=== PATIENT | female | born 1950 | race Hispanic/Latino ===

== ENCOUNTER 2024-06-09 00:16 | Inpatient (IN) | payer SELFPAY ==
[~2024-06-09] VITALS: Ht 152.4 cm; Wt 38.7 kg
[2024-06-09 01:26] LABS: BASOPHILS # (AUTO) 0.03 K/uL (0.00-0.20); BASOPHILS % (AUTO) 0.5 % (0.0-5.0); EOSINOPHILS # (AUTO) 0.15 K/uL (0.00-0.70); EOSINOPHILS % (AUTO) 2.3 % (0.0-8.0); HEMATOCRIT 29.7 % (36-48); IMMATURE GRANULOCYTE ABSOLUTE 0.02 K/uL (0-1); LYMPHOCYTES # (AUTO) 1.1 K/uL (1.0-4.8); LYMPHOCYTES % (AUTO) 16.8 % (21.0-51.0); MEAN CORPUSCULAR HEMOGLOBIN 30.8 pg (27.0-33.0); MEAN CORPUSCULAR HGB CONC 33.3 g/dL (32.0-36.0); MEAN CORPUSCULAR VOLUME 92.5 fL (79-99); MONOCYTES # (AUTO) 0.5 K/uL (0.1-1.0); MONOCYTES % (AUTO) 7.9 % (3.0-13.0); NEUTROPHILS # (AUTO) 4.7 K/uL (1.8-7.7); NEUTROPHILS % (AUTO) 72.2 % (40.0-77.0); PLATELET COUNT (AUTO) 376 K/uL (130-400); RED BLOOD CELL COUNT(AUTO) 3.21 MIL/uL (4.00-5.50); RED CELL DISTRIBUTION WIDTH 14.6 % (11.0-15.5); WHITE BLOOD COUNT (AUTO) 6.5 K/uL (4.8-10.8)
[2024-06-09 01:34] LABS: CREATININE 0.4 mg/dL (0.5-1.0); POTASSIUM 3.9 mmol/L (3.5-5.1)
[2024-06-09 01:37] LABS: INR 1.08 (0.85-1.15); PROTHROMBIN TIME 11.4 SEC (9.6-11.6)
[2024-06-09 01:38] LABS: PARTIAL THROMBOPLASTIN TIME 28.1 SEC (26.3-35.5)
--- NOTE | 2024-06-09 02:10 | ERN ---
General Chief Complaint: Urinary Catheter Problems Stated Complaint: DARK URINE Time Seen by MD: 00:25 Time Seen by Midlevel: 00:25 Source: patient History of Present Illness Allergies: Coded Allergies: No Known Drug Allergies (Unverified Allergy, Unknown, 06/09/24) Past Medical History Past Medical History: High Cholesterol, Hypertension Medical History Other: PARKINSON'S Past Surgical History: None ROS Dictation CONSTITUTIONAL: Negative except for HPI HEAD/FACE: Negative except for HPI EENT: Negative except for HPI RESPIRATORY: Negative except for HPI GASTROINTESTINAL/ABDOMINAL: Negative except for HPI GENITOURINARY: Negative except for HPI MUSCULOSKELETAL: Negative except for HPI INTEGUMENTARY: Negative except for HPI NEUROLOGICAL/PSYCH: Negative except for HPI HEMATOLOGIC/LYMPHATIC: Negative except for HPI All Systems Negative, Except as noted above. 13 point review of systems assessed and all negative except for above. Physical Exam Physical Exam Dictation Vital Signs reviewed General Appearance: Alert, oriented x 3, no acute distress, resting tremor to bilateral upper extremities consistent with her history of Parkinson's, frail Head and Face: non-traumatic. Eyes: PERRL, pink conjunctivas, eyelid no trauma, anterior chamber with arcus senilis. Ears: Pinnas intact and no signs of trauma or erythema ear canals clear and no discharge TM no erythema Nose: No discharge, no bleeding. Oropharynx: Mouth normal, tongue pink, pharynx clear,no erythema, tonsils no exudates, no abscesses noted, dry mucous membranes Neck: Supple, non-tender, no thyromegaly, no masses, no JVD, no bruits Breast:Deferred Chest:No tenderness, no crepitus, no paradoxical movement, no retractions Lungs:Clear, well-ventilated, symmetric, no rales, no wheezing, no rhonchi, no stridor, good breath sounds bilaterally Heart: Regular rate, regular rhythm, no murmur, no gallops Vascular: no peripheral edema, Abdomen: Soft, positive bowel sounds, nondistended, no guarding, Suprapubic abdominal tenderness, no rebound, no masses no hepatomegaly, no splen omegaly, no Hayden's sign, no hernias. Rectal: Deferred Genital: Sal catheter in place with dark brown/red urine noted in the Sal bag, there is sediment in the Sal catheter Neurological: Normal speech, motor function intact, sensory function intact Musculoskeletal: Neck nontender, full range of motion, back nontender, full range of motion, Extremities: nontender, full range of motion Skin: Color pink, dry, no turgor, no rash, no lacerations, no abrasions, no contusions. Lymphatic: Deferred Results Laboratory and Microbiology Lab and Micro Result Laboratory Tests Test 06/09/24 01:19 06/09/24 02:24 White Blood Count 6.5 K/uL (4.8-10.8) Red Blood Count 3.21 MIL/uL (4.00-5.50) L Hemoglobin 9.9 g/dL (12.0-16.0) L Hematocrit 29.7 % (36-48) L Mean Corpuscular Volume 92.5 fL (79-99) Mean Corpuscular Hemoglobin 30.8 pg (27.0-33.0) Mean Corpuscular Hemoglobin Concent 33.3 g/dL (32.0-36.0) Red Cell Distribution Width 14.6 % (11.0-15.5) Platelet Count 376 K/uL (130-400) Mean Platelet Volume 8.8 fL (7.5-10.5) Immature Granulocyte % (Auto) 0.3 % (0-1) Neutrophils (%) (Auto) 72.2 % (40.0-77.0) Lymphocytes (%) (Auto) 16.8 % (21.0-51.0) L Monocytes (%) (Auto) 7.9 % (3.0-13.0) Eosinophils (%) (Auto) 2.3 % (0.0-8.0) Basophils (%) (Auto) 0.5 % (0.0-5.0) Neutrophils # (Auto) 4.7 K/uL (1.8-7.7) Lymphocytes # (Auto) 1.1 K/uL (1.0-4.8) Monocytes # (Auto) 0.5 K/uL (0.1-1.0) Eosinophils # (Auto) 0.15 K/uL (0.00-0.70) Basophils # (Auto) 0.03 K/uL (0.00-0.20) Absolute Immature Granulocyte (auto 0.02 K/uL (0-1) Nucleated Red Blood Cells 0.0 % (0.0-0.19) Prothrombin Time 11.4 SEC (9.6-11.6) Prothromb Time International Ratio 1.08 (0.85-1.15) Activated Partial Thromboplast Time 28.1 SEC (26.3-35.5) Sodium Level 132 mmol/L (136-145) L Potassium Level 3.9 mmol/L (3.5-5.1) Chloride Level 97 mmol/L (101-111) L Carbon Dioxide Level 30 mmol/L (21-32) Blood Urea Nitrogen 8 mg/dL (7-18) Creatinine 0.4 mg/dL (0.5-1.0) L Glomerular Filtration Rate Calc 106 mL/min (>90) Random Glucose 85 mg/dL (70-105) Total Calcium 8.7 mg/dL (8.5-10.1) Urine Color LIGHT-YELLOW (YELLOW) Urine Appearance CLOUDY (CLEAR) H Urine pH 7.5 (5.0-8.0) Urine Specific [place] 1.005 (1.001-1.031) Urine Protein NEGATIVE mg/dL (NEGATIVE) Urine Glucose (UA) NEGATIVE mg/dL (NEGATIVE) Urine Ketones NEGATIVE mg/dL (NEGATIVE) Urine Occult Blood NEGATIVE (NEGATIVE) Urine Nitrate NEGATIVE (NEGATIVE) Urine Bilirubin NEGATIVE mg/dL (NEGATIVE) Urine Urobilinogen 0.2 mg/dL (0.2-1.0) Urine Leukocyte Esterase 500 Soo/uL (NEGATIVE) H Urine RBC 2-5 /HPF (0-1) H Urine WBC 51-100 /HPF (0-1) H Urine WBC Clumps (Auto) FEW /HPF (0-1) Urine Squamous Epithelial Cells RARE /HPF (0-2) Urine Bacteria MOD /HPF (None Seen) Urine Yeast RARE /HPF (None Seen) Labs Reviewed?: Yes MDM MDM: The patient is a 71-year-old female with a past medical history of Par kinson's, hypertension, and hyperlipidemia presenting to the emergency department for evaluation of suprapubic abdominal pain. She also reports that for the last four days she has been having hematuria in her Sal. Today she states the Sal had decreased output and believes it may have been clogged. She reports subjective fevers for the last couple of days. The patient does not ambulate at baseline given her extensive history of Parkinson's. She lives with her who is also an elderly patient. She has not been able to follow up with her primary care doctor anymore since her is no longer able to transfer her into the car. On physical examination the patient has a resting tremor to bilateral upper extremities consistent with her history of the Parkinson's. She appears frail and weak. She was a Sal catheter in place with hematuria in the Sal bag. There was obvious sediment in the Sal catheter. She was suprapubic abdominal tenderness. Initial vital signs are stable. Patient was afebrile. CBC shows no leukocytosis with a normal white blood cell count of 6.5. There is anemia with a hemoglobin of 9.9. We have no hemoglobin to compare this to. Her platelets are normal at 376. Coag studies are unremarkable. Chemistries reveal slight hyponatremia with a sodium of 132, slight hypochloremia with a chloride of 97. Potassium is normal at 3.9. BUN and creatinine are unremarkable. CT scan of the abdomen/pelvis was obtained to rule out any post bladder outlet obstruction. Differential diagnosis: Complicated urinary tract infection, post bladder outlet obstruction, deconditioning, failure to thrive Rationale: Tests considered and ordered secondary to shared decision making include: Previous outside records reviewed: Old ER visits. Risk of complication and/or morbidity or mortality of patient management: None Medications-Per medication reconciliation Need for hospitalization: Patient does meet criteria for hospitalization. Need for emergency major/minor surgery: No There are no social concerns with this patient. Prescription drug management Prescriptions will include symptomatic care Patient's prior external medical records from other ER visits were reviewed by me as indicated. Prior testing and results from previous visits were reviewed. Prior tests were taken into account with medical decision making and resource utilization, independent historian/historians were used to obtain complete medical history. I independently interpreted the test that were performed, results were reviewed by me and considered findings on radiology if ordered. Medical management and examination interpretation discussions were had by me with other qualified healthcare professionals as indicated for the patient's care. I discussed the patient's condition with the hospitalist and they have agreed to admit her to the hospital. She does have esterase activity in her urine. ED Course Orders Procedure Category Date Status Time Cbc With Differential LAB 06/09/24 Complete 00:59 Basic Metabolic Panel LAB 06/09/24 Complete 00:59 Pt And Ptt LAB 06/09/24 Complete 00:59 Urinalysis Profile LAB 06/09/24 Complete 00:59 Ct Abdomen/Pelvis W/O CT 06/09/24 Taken Contrast 00:59 Nurse Driven Sal JOAQUÍN 06/09/24 In Process Removal Pro 02:07 Culture Urine LILLY 06/09/24 In Process 02:33 Vital Signs Date Time Temp Pulse Resp B/P (MAP) Pulse Ox O2 Delivery O2 Flow Rate FiO2 06/09/24 02:39 58 17 93/44 99 Room Air* 0 21 06/09/24 00:25 97.0 91 16 139/66 99 Room Air 0 DX & DISP Disposition: Inpatient Departure Impression: Primary Impression: UTI (urinary tract infection) Condition: Stable Referrals: SELF,REFERRAL (PCP) I have reviewed the case, and I agree with, Diagnosis and Plan RO SERRA Jun 09, 2024 02:10 SUNNY MARR MD Jun 09, 2024 04:42
[2024-06-09 02:32] LABS: ADD UA MICROSCOPIC YES; APPEARANCE,URINE CLOUDY (CLEAR); BILIRUBIN,URINE NEGATIVE (NEGATIVE); COLOR,URINE LIGHT-YELLOW (YELLOW); GLUCOSE, URINE (UA) NEGATIVE (NEGATIVE); KETONES,URINE NEGATIVE (NEGATIVE); LEUKOCYTE ESTERASE ,URINE 500 Leu/uL (NEGATIVE); NITRATE,URINE NEGATIVE (NEGATIVE); OCCULT BLOOD,URINE NEGATIVE (NEGATIVE); PH,URINE 7.5 (5.0-8.0); PROTEIN,URINE NEGATIVE (NEGATIVE); UROBILINOGEN,URINE 0.2 mg/dL (0.2-1.0)
[2024-06-09 02:35] LABS: BACTERIA,URINE MOD /HPF (None Seen); SQUAMOUS EPITHELIAL CELL,UR RARE /HPF (0-2); WBC CLUMP FEW /HPF (0-1); WBC,URINE 51-100 /HPF (0-1); YEAST,URINE BUDDING RARE /HPF (None Seen)
[2024-06-09] MEDS ORDERED: 0.9%NACL 50ML IV SCH (05:00)
[2024-06-09] MEDS ORDERED: DOCU100C33 PO (05:08)
[2024-06-09] MEDS ORDERED: LISI10TA24 PO (05:08)
[2024-06-09] MEDS ORDERED: CARB1TAB35 PO (05:08)
[2024-06-09] MEDS ORDERED: GABA-529 PO (05:08)
[2024-06-09] MEDS ORDERED: FOLI1 PO (05:08)
[2024-06-09] MEDS ORDERED: CYAN-35 PO (05:08)
[2024-06-09] MEDS ORDERED: AMLO2.5T4 PO (05:08)
[2024-06-09] MEDS ORDERED: LEVO100T12 PO (05:08)
[2024-06-09] MEDS: ZOSYN 3.375GM +NS 50ML IVPB SCH (05:24)
--- NOTE | 2024-06-09 05:44 | HP ---
[facility] HISTORY AND PHYSICAL Date of Service: Jun 09, 2024 Time of Service: 05:20 Attending/supervising physicians: Dr. Upton and Dr. Pettit HISTORY OF PRESENT ILLNESS: Ms. Dumont is a 71-year-old female with a history of UTIs, chronic Sal, hx of ESBL in the urine, Parkinson's, hypercholesteremia, and hypertension who presented to [facility] ED for evaluation of suprapubic abdominal pain, Sal problem, hematuria, and dark urine onset the last four days. The patient reported discomfort to the urinary meatus, noted large amount of hematuria, then the urine in the bag looked brownish in color. Today the Sal catheter had decreased output, was leaking around, and for which the family believed it was clogged. The patient reported subjective fevers for the last couple of days. The patient does not ambulate at baseline due to her extensive history of Parkinson's. The patient lives with her elderly who takes care of her. The patient is not able to follow up with her PCP given that her 's not able to transfer her in the car anymore. ED change the patient's Sal to a three-way Sal catheter. In case irrigation was needed, no irrigation was done. ED provider request patient be admitted with the diagnosis of UTI. The patient was admitted under the [facility] hospitalist team. I assess the patient at bedside in ED #15. Patient's breathing was even, unlabored, in no distress. Patient's oral mucosa is dry, has bags under her eyes, I appears to be slightly sunken in. Patient has resting tremors to her bilateral upper extremities, R>L. Labs reviewed: Hemoglobin 9.6, platelet 376. Coags unremarkable. Na 132, chloride 97, K 3.9. BUN and creatinine are unremarkable. CT abdomen and pelvis: Sal catheter within normal size urinary bladder, without evidence of any acute intra-abdominal or pelvic process, including no evidence for cystitis. The patient and the were very conversive. They asked multiple questions were addressed by me. I informed them of labs, diagnostics, plan of care. They verbalized understanding and are in agreement with the plan. Plan and assessment are listed below. REVIEW OF SYSTEMS 12-point ROS reviewed with the patient. All pertinent positives mentioned above. Otherwise negative, noncontributory, or non-pertinent. PAST MEDICAL HISTORY: As mentioned above PAST SURGICAL HISTORY: None PAST SOCIAL HISTORY: Denies alcohol, tobacco, illicit drug use FAMILY HISTORY: Noncontributory Coded Allergies: amoxicillin (Unverified Allergy, Unknown, HIVES, 06/09/24) aspirin (Unverified Allergy, Unknown, HIVES, 06/09/24) levofloxacin (Unverified Allergy, Unknown, ITCHING, 06/09/24) PHYSICAL EXAM GENERAL APPEARANCE: The patient is awake, alert, and oriented, in no acute cardiopulmonary distress. NEUROLOGICAL: Cranial nerves II-XII grossly intact. Motor is 5/5 in bilateral upper and lower extremities proximal to distal. No sensory deficits. HEENT: Face is symmetric. Pupils are equal and reactive. Extraocular movements are intact. NECK: Supple. No JVD. No thyromegaly. No submental, submandibular, pre- /postauricular, occipital or supraclavicular lymphadenopathy. CHEST: Normal chest expansion. No Telemetry. LUNGS: Absence of any rales, rhonchi or any wheezing. CARDIOVASCULAR: Regular. S1 and S2 normal. No appreciable rubs, murmurs or gallops. ABDOMEN: Soft, nontender, and nondistended. There is no rebound, voluntary guarding, or rigidity. : Three-way Sal catheter in place. No bleeding noted. No discharge or drainage around the Sal. EXTREMITIES: Non-edematous and not cyanotic. No clubbing. Good capillary refill. SKIN: No skin breakdown. Vital Sign (Last 24 Hours) 06/09/24 06/09/24 00:25 05:19 Temp 97.0 Pulse 83 Resp 17 B/P (MAP) 135/72 Pulse Ox 99 O2 Delivery Room Air* O2 Flow Rate 0 FiO2 21 LABS: Laboratory: Test 06/09/24 02:24 06/09/24 01:19 Range/Units Urine Color LIGHT-YELLOW YELLOW Urine Appearance CLOUDY H CLEAR Urine pH 7.5 5.0-8.0 Urine Specific [place] 1.005 1.001-1.031 Urine Protein NEGATIVE NEGATIVE mg/dL Urine Glucose (UA) NEGATIVE NEGATIVE mg/dL Urine Ketones NEGATIVE NEGATIVE mg/dL Urine Occult Blood NEGATIVE NEGATIVE Urine Nitrate NEGATIVE NEGATIVE Urine Bilirubin NEGATIVE NEGATIVE mg/dL Urine Urobilinogen 0.2 0.2-1.0 mg/dL Urine Leukocyte Esterase 500 H NEGATIVE Soo/uL Urine RBC 2-5 H 0-1 /HPF Urine WBC 51-100 H 0-1 /HPF Urine WBC Clumps (Auto) FEW 0-1 /HPF Urine Squamous Epithelial Cells RARE 0-2 /HPF Urine Bacteria MOD None Seen /HPF Urine Yeast RARE None Seen /HPF White Blood Count 6.5 4.8-10.8 K/uL Red Blood Count 3.21 L 4.00-5.50 MIL/uL Hemoglobin 9.9 L 12.0-16.0 g/dL Hematocrit 29.7 L 36-48 % Mean Corpuscular Volume 92.5 79-99 fL Mean Corpuscular Hemoglobin 30.8 27.0-33.0 pg Mean Corpuscular Hemoglobin Concent 33.3 32.0-36.0 g/dL Red Cell Distribution Width 14.6 11.0-15.5 % Platelet Count 376 130-400 K/uL Mean Platelet Volume 8.8 7.5-10.5 fL Immature Granulocyte % (Auto) 0.3 0-1 % Neutrophils (%) (Auto) 72.2 40.0-77.0 % Lymphocytes (%) (Auto) 16.8 L 21.0-51.0 % Monocytes (%) (Auto) 7.9 3.0-13.0 % Eosinophils (%) (Auto) 2.3 0.0-8.0 % Basophils (%) (Auto) 0.5 0.0-5.0 % Neutrophils # (Auto) 4.7 1.8-7.7 K/uL Lymphocytes # (Auto) 1.1 1.0-4.8 K/uL Monocytes # (Auto) 0.5 0.1-1.0 K/uL Eosinophils # (Auto) 0.15 0.00-0.70 K/uL Basophils # (Auto) 0.03 0.00-0.20 K/uL Absolute Immature Granulocyte (auto 0.02 0-1 K/uL Nucleated Red Blood Cells 0.0 0.0-0.19 % Prothrombin Time 11.4 9.6-11.6 SEC Prothromb Time International Ratio 1.08 0.85-1.15 Activated Partial Thromboplast Time 28.1 26.3-35.5 SEC Sodium Level 132 L 136-145 mmol/L Potassium Level 3.9 3.5-5.1 mmol/L Chloride Level 97 L 101-111 mmol/L Carbon Dioxide Level 30 21-32 mmol/L Blood Urea Nitrogen 8 7-18 mg/dL Creatinine 0.4 L 0.5-1.0 mg/dL Glomerular Filtration Rate Calc 106 >90 mL/min Random Glucose 85 70-105 mg/dL Total Calcium 8.7 8.5-10.1 mg/dL Current Medications Medications (Trade) Dose Ordered Sig/Becca Route PRN Reason Start Time Stop Time Status Last Admin Dose Admin Piperacillin Sod/ Tazobactam Sod (Zosyn 3.375gm+NS 50ml) 3.375 gm Q8H IVPB 06/09/24 05:00 06/19/24 04:59 06/09/24 05:24 3.375 GM Sodium Chloride (NS 50ml) 50 ml AD IV 06/09/24 05:00 06/09/24 05:01 DC DIAGNOSTICS / RADIOLOGY: [ ] ASSESSMENT: Acute complicated cystitis, POA Chronic Sal catheter use Anemia Electrolyte derangement (hyponatremia, hypochloremia) Parkinson's disease Hypertension Hypercholesteremia HX: UTIs & ESBL in the urine PLAN: Admit the patient to medical floor. Start Zosyn 3.375 IV q.8 hours. Antibiotic therapy tailored to urine culture results. Deescalate antibiotics when appropriate. Monitor for fevers and for hematuria. Follow WBCs and urine cultures. Sal catheter change per nursing staff. Resume patient's home medications: Amlodipine, carbidopa levodopa, vitamin B12, docusate, folic acid, gabapentin, levothyroxine, lisinopril. Oxygen as needed to keep SpO2 equal to greater than 92%. P.r.n. medications for: Pain management, fever, hypertension, nausea, vomiting, constipation. Glucometer checks a.c. and HS with insulin regular sliding scale per protocol. Blood pressure checks every 4 hours and as needed. Monitor renal and liver function. Monitor electrolytes and treat accordingly. Administer gentle IV fluid hydration: NS 500 mL. A.m. labs: CBC, BMP, Mag, phos, TSH, A1c. GI and DVT prophylaxis. ADVANCED CARE PLANNING 1. Which of the following were discussed? Hospice Care - No Therapeutic options - Yes Advance Directives - Yes Other discussions - 2. Discussed with who? Patient 3. Voluntary nature of this service was explained to the patient? Yes 4. Amount of time spent - ___ Over 35 minute ____ 5. Reviewed by Physician? (if this service was performed by NPP) Yes ATTESTATION BY PHYSICIAN I have seen and examined the patient. I reviewed the documentation, medical decision making, and treatment plan as noted by the mid-level provider above. I agree with the findings and plan of care. HERMELINDA IZAGUIRRE [facility] Jun 09, 2024 05:44
[2024-06-09] MEDS ORDERED: acetaMINOPHEN 650 MG SUPPOSITORY RC PRN (06:00)
[2024-06-09] MEDS ORDERED: doCUSate SODIUM 100 MG CAP PO PRN (06:00)
[2024-06-09] MEDS ORDERED: acetaMINOPHEN 325 MG TAB PO PRN (06:00)
[2024-06-09] MEDS ORDERED: ondanSETRON 4MG INJ IVP PRN (06:00)
[2024-06-09] MEDS ORDERED: LACTULOSE 20 GM/30 ML UDCUP PO PRN (06:00)
[2024-06-09] MEDS: levoTHYROxine 100 MCG TABLET PO SCH (06:33)
[2024-06-09 07:40] VITALS: BP 113/50; PULSE 52; RESP 20; TEMP 97.8
--- NOTE | 2024-06-09 07:40 | NUR ---
ADMISSION Pt admitted to Med Surg floor arrived by ER. A&Ox4 able to voice needs. C/o bladder pain pain of 2 on a 0-10 scale. Pt with spouse at bedside. Eyes spontaneous and brisk & equal. Bilateral U&LE pulses present & equal. Lungs clear on all lobes. Bowels hyperactive x 4. Abdomen flat soft & nondistended. 16 F taylor 3-way intact & patent. Yellow urine no foul odor noted + sediment Cap refill less than 3 on fingers & toes. Call light education provided & within reach. Bed at lowest level & locked. Pt verbalized no further assistance needed. SR, RN
--- NOTE | 2024-06-09 08:09 | HMCIMG ---
CT ABDOMEN WITHOUT CONTRAST. CT PELVIS WITHOUT CONTRAST. INDICATION: Evaluate for bladder obstruction TECHNIQUE: Routine transaxial imaging using 5 mm slice thickness through the abdomen and pelvis without the administration of IV contrast. Thin slice reconstructions are also provided. Coronal and sagittal reformatted images acquired for interpretation. CT was performed with one or more of the following dose reduction techniques: Automated exposure control, adjustment of the mA and/or kV according to patient size, or use of iterative reconstruction technique. COMPARISON: None FINDINGS: ON NONCONTRAST IMAGING: ABDOMEN: Heart size is normal. Visible lung bases are clear. No abnormal renal calcifications, hydronephrosis, perinephric inflammation, or proximal hydroureter detected. Curvilinear calcification at the upper pole of the right kidney and larger linear calcification at the mid to upper portion of the left kidney appear to be of vascular in origin. The liver is normal in size and smooth in contour without biliary duct dilation. The spleen is normal in size and attenuation. The gallbladder appears normal. The pancreas appears normal without pancreatic duct dilation. The adrenal glands appear normal. No significant abdominal, retrocrural or retroperitoneal adenopathy noted. No evidence for intra-abdominal free air or organized fluid collection. Mild calcific plaque is noted along the abdominal aortic and iliac vessel alberto without aneurysmal dilation. PELVIS: Sal catheter occupies the urinary bladder. No evidence for free air or organized pelvic fluid collection. No significant pelvic adenopathy detected. Moderate rectal fecal impaction. Terminal ileum appears unremarkable. The appendix appears normal. Visible osseous structures are intact. IMPRESSION: Sal catheter within the normal-sized urinary bladder, without evidence for any acute intra-abdominal or pelvic process, including no evidence for cystitis. Additional minor findings and pertinent negatives as reported.
[2024-06-09] MEDS: CARBIDOPA-LEVODOPA 25-100 TAB PO SCH (08:20)
[2024-06-09] MEDS: FOLic ACID 1 MG TABLET PO SCH (08:21)
[2024-06-09] MEDS: GABApentin 100 MG CAPSULE PO SCH (08:21)
[2024-06-09] MEDS: CYANOCOBALAMIN (VITAMIN B-12) 1,000 MCG TABLET PO SCH (08:22)
[2024-06-09] MEDS: doCUSate SODIUM 100 MG CAP PO SCH (08:22)
[2024-06-09] MEDS: LISINOPRIL 10 MG TABLET PO SCH (08:23)
[2024-06-09] MEDS: amLODIPine 2.5 MG TAB PO SCH (09:00)
[2024-06-09 09:54] VITALS: O2SAT 100
[2024-06-09 12:00] VITALS: BP 103/53; PULSE 57; RESP 18; TEMP 97.8
[2024-06-09] MEDS: 0.9% NACL 500ML IV.SOLN 500 ML IV ONE (13:14)
[2024-06-09 16:00] VITALS: BP 120/87; PULSE 63; RESP 18; TEMP 97.5
[2024-06-09] MEDS: CARBIDOPA/LEVODOPA ER 50-200 1 EACH TABLET.ER PO SCH (17:30)
[2024-06-09 19:08] VITALS: O2SAT 98
[2024-06-09 20:00] VITALS: BP 153/92; PULSE 87; RESP 16; TEMP 97.8
--- NOTE | 2024-06-09 23:26 | NUR ---
PATIENT HAS BP 81/41 HR 57. REPORTS FEELING WEEK, BUT NO OTHER DISCOMFORT. RECHECKED BP ON RIGHT ARM 79/42 P 57 AND LEFT ARM 74/41 HR 56 O2 SAT 98% RR 16 TEMP 97.8. CONTACTED ANSWERING SERVICE FOR HOSPITALIST TO JERALD LEA NP. SPOKE WITH HAZEL IZAGUIRRE NP. RECEIVED ORDERS FOR MIDODRINE 10MG X1 DOSE AND 500ML NS BOLUS. NOTIFIED PATIENT OF NEW ORDERS.
[2024-06-09] MEDS: miDODRine HCL 5 MG TABLET PO ONE ×2 (23:54→23:58)
[2024-06-09] MEDS: 0.9%NACL 1000ML 1,000 ML IV SCH (23:59)
[2024-06-10] VITALS (9 sets, daily range): BP systolic 79–152; BP diastolic 42–81; PULSE 55–75; RESP 17–18; TEMP 97.6–98.2; O2SAT 97–99
--- NOTE | 2024-06-10 01:00 | NUR ---
CHECKED PATIENT'S BP 91/44 HR 55 ON RIGHT ARM AND 94/47 HR 56. SAYS SHE FEELS A LITTLE WEAK BUT NO OTHER SYMPTOMS OR DISCOMFORTS.
[2024-06-10 04:31] LABS: HEMATOCRIT 29.5 % (36-48); MEAN CORPUSCULAR HEMOGLOBIN 30.4 pg (27.0-33.0); MEAN CORPUSCULAR HGB CONC 32.9 g/dL (32.0-36.0); MEAN CORPUSCULAR VOLUME 92.5 fL (79-99); RED BLOOD CELL COUNT(AUTO) 3.19 MIL/uL (4.00-5.50); RED CELL DISTRIBUTION WIDTH 14.8 % (11.0-15.5); WHITE BLOOD COUNT (AUTO) 5.1 K/uL (4.8-10.8)
[2024-06-10 04:45] LABS: CREATININE 0.5 mg/dL (0.5-1.0); PHOSPHORUS 3.1 mg/dL (2.5-4.9); POTASSIUM 3.3 mmol/L (3.5-5.1)
[2024-06-10] MEDS ORDERED: MAGNESIUM 2GM PREMIX 50ML 50 ML IV PRN (09:00)
[2024-06-10] MEDS ORDERED: PoTASSium chloRIDE 20MEQ ER 20 MEQ ERTAB PO PRN (09:00)
[2024-06-10] MEDS ORDERED: PoTASSium chloRIDE 20MEQ/100ML 100 ML IV PRN (09:00)
[2024-06-10] MEDS: PoTASSium chl 10% ELIXIR 20MEQ 20 MEQ/15 ML UDCUP PO PRN (11:21)
--- NOTE | 2024-06-10 14:44 | PN ---
[facility] PROGRESS NOTE Date of Service: Jun 10, 2024 Time of Service: 14:31 SUBJECTIVE: Ms. Dumont is a 71-year-old female with a history of UTIs, chronic Sal, hx of ESBL in the urine, Parkinson's, hypercholesteremia, and hypertension who [place] [facility] [facility] [place] evaluation of suprapubic abdominal pain, Sal problem, hematuria, and dark urine onset the last four days. The patient reported discomfort to the urinary meatus, noted large amount of hematuria, then the urine in the bag looked brownish in color. Today the Sal catheter had decreased output, was leaking around, and for which the family believed it was clogged. The patient reported subjective fevers for the last couple of days. The patient does not ambulate at baseline due to her extensive history of Parkinson's. The patient lives with her elderly who takes care of her. The patient is not able to follow up with her PCP given that her 's not able to transfer her in the car anymore. ED change the patient's Sal to a three-way Sal catheter. In case irrigation was needed, no irrigation was done. ED provider request patient be admitted with the diagnosis of UTI. The patient was admitted under the [facility] hospitalist team. I assess the patient at bedside in ED #15. Patient's breathing was even, unlabored, in no distress. Patient's oral mucosa is dry, has bags under her eyes, I appears to be slightly sunken in. Patient has resting tremors to her bilateral upper extremities, R>L. Labs reviewed: Hemoglobin 9.6, platelet 376. Coags unremarkable. Na 132, chloride 97, K 3.9. BUN and creatinine are unremarkable. CT abdomen and pelvis: Sal catheter within normal size urinary bladder, without evidence of any acute intra-abdominal or pelvic process, including no evidence for cystitis. 06/10/24 the patient is seen and examined this morning, her being at the bedside. Her nurse helped with the translation. On Examination Patient has significant resting tremor. As per the nurse, patient is having suprapubic pain which happen go away after she urinates. She also has a tenderness in lower ab dominal pain. Her urine bag connected clear straw-colored urine without any blood. Urine analysis is consistent with UTI. Urine cultures positive for >[id number] CFU and sensitivity and susceptibility to follow. Continue with Zosyn Q 8 IVPB. REVIEW OF SYSTEMS CONSTITUTIONAL: Denies fevers, chills, or night sweats. No unintentional weight loss reported. NEUROLOGICAL: Denies headache, amaurosis fugax, motor weakness, sensory deficit, vertigo/spinning sensation, gait abnormalities, or tremors. ENT: No hearing loss, otalgia, otorrhea, rhinitis, rhinorrhea, hoarseness, or sore throat. CARDIOVASCULAR: Denies any exertional angina, dyspnea on exertion, orthopnea, paroxysmal nocturnal dyspnea, palpitations, life-threatening arrhythmias, claudication. Complains of chest discomfort PULMONARY: Denies any shortness of breath, cough, phlegm/sputum, hemoptysis, pleuritic chest pain. SLEEP: Denies morning headaches, daytime somnolence or napping. Denies difficulty falling asleep, staying asleep, waking from sleep. Denies knowledge of snoring. GASTROINTESTINAL: Denies any type of dysphagia to either liquids or solids. Denies nausea, vomiting, pyrosis, early satiety, abdominal pain, diarrhea, constipation, or changes in stool consistency or caliber. Denies coffee-ground emesis, hematemesis, hematochezia, or melanotic stools. GENITOURINARY: Sal catheter present. Denies frequency, urgency, nocturia, hematuria or incontinence (Storage/Irritative symptoms.) Low urinary stream, straining to void, urinary intermittency or hesitancy, splitting of the voiding stream, terminal dribbling. ENDOCRINOLOGIC: Denies polyuria, polydipsia, polyphagia or heat/cold intolerances. HEMATOLOGIC: Denies thrombophilia/previous clots, or coagulopathy/bleeding disorders. ONCOLOGIC: Denies personal history of malignancy. DERMATOLOGIC: Denies rashes or pruritus. PSYCHIATRIC: Denies any suicidal or homicidal ideation. Denies hallucinations. PHYSICAL EXAM GENERAL APPEARANCE: The patient is awake, alert, and oriented, in no acute cardiopulmonary distress. NEUROLOGICAL: Cranial nerves II-XII grossly intact. Motor is 5/5 in bilateral upper and lower extremities proximal to distal. No sensory deficits. HEENT: Face is symmetric. Pupils are equal and reactive. Extraocular movements are intact. NECK: Supple. No JVD. No thyromegaly. No submental, submandibular, pre- /postauricular, occipital or supraclavicular lymphadenopathy. CHEST: Normal chest expansion. No Telemetry. LUNGS: Absence of any rales, rhonchi or any wheezing. CARDIOVASCULAR: Regular. S1 and S2 normal. No appreciable rubs, murmurs or gallops. ABDOMEN: Suprapubic tenderness present. Soft and nondistended. There is no rebound, voluntary guarding, or rigidity. : Three-way Sal catheter in place. No bleeding noted. No discharge or drainage around the Sal. EXTREMITIES: Non-edematous and not cyanotic. No clubbing. Good capillary refill. SKIN: No skin breakdown. Vital Signs (last 8hr) Date Time Temp Pulse Resp B/P (MAP) Pulse Ox O2 Delivery O2 Flow Rate FiO2 06/10/24 12:00 98.2 75 18 102/51 98 Room Air 06/10/24 09:25 99 Room Air* 0 21 06/10/24 08:00 97.7 73 18 152/75 99 Room Air LABS: Laboratory: Test 06/10/24 04:11 06/09/24 02:24 06/09/24 01:19 Range/Units White Blood Count 5.1 4.8-10.8 K/uL Red Blood Count 3.19 L 4.00-5.50 MIL/uL Hemoglobin 9.7 L 12.0-16.0 g/dL Hematocrit 29.5 L 36-48 % Mean Corpuscular Volume 92.5 79-99 fL Mean Corpuscular Hemoglobin 30.4 27.0-33.0 pg Mean Corpuscular Hemoglobin Concent 32.9 32.0-36.0 g/dL Red Cell Distribution Width 14.8 11.0-15.5 % Platelet Count 354 130-400 K/uL Mean Platelet Volume 8.7 7.5-10.5 fL Nucleated Red Blood Cells 0.0 0.0-0.19 % Sodium Level 140 136-145 mmol/L Potassium Level 3.3 L 3.5-5.1 mmol/L Chloride Level 104 101-111 mmol/L Carbon Dioxide Level 26 21-32 mmol/L Blood Urea Nitrogen 7 7-18 mg/dL Creatinine 0.5 0.5-1.0 mg/dL Glomerular Filtration Rate Calc 100 >90 mL/min Random Glucose 88 70-105 mg/dL Total Calcium 8.4 L 8.5-10.1 mg/dL Phosphorus Level 3.1 2.5-4.9 mg/dL Magnesium Level 2.00 1.80-2.40 mg/dL Urine Color LIGHT-YELLOW YELLOW Urine Appearance CLOUDY H CLEAR Urine pH 7.5 5.0-8.0 Urine Specific [place] 1.005 1.001-1.031 Urine Protein NEGATIVE NEGATIVE mg/dL Urine Glucose (UA) NEGATIVE NEGATIVE mg/dL Urine Ketones NEGATIVE NEGATIVE mg/dL Urine Occult Blood NEGATIVE NEGATIVE Urine Nitrate NEGATIVE NEGATIVE Urine Bilirubin NEGATIVE NEGATIVE mg/dL Urine Urobilinogen 0.2 0.2-1.0 mg/dL Urine Leukocyte Esterase 500 H NEGATIVE Soo/uL Urine RBC 2-5 H 0-1 /HPF Urine WBC 51-100 H 0-1 /HPF Urine WBC Clumps (Auto) FEW 0-1 /HPF Urine Squamous Epithelial Cells RARE 0-2 /HPF Urine Bacteria MOD None Seen /HPF Urine Yeast RARE None Seen /HPF Immature Granulocyte % (Auto) 0.3 0-1 % Neutrophils (%) (Auto) 72.2 40.0-77.0 % Lymphocytes (%) (Auto) 16.8 L 21.0-51.0 % Monocytes (%) (Auto) 7.9 3.0-13.0 % Eosinophils (%) (Auto) 2.3 0.0-8.0 % Basophils (%) (Auto) 0.5 0.0-5.0 % Neutrophils # (Auto) 4.7 1.8-7.7 K/uL Lymphocytes # (Auto) 1.1 1.0-4.8 K/uL Monocytes # (Auto) 0.5 0.1-1.0 K/uL Eosinophils # (Auto) 0.15 0.00-0.70 K/uL Basophils # (Auto) 0.03 0.00-0.20 K/uL Absolute Immature Granulocyte (auto 0.02 0-1 K/uL Prothrombin Time 11.4 9.6-11.6 SEC Prothromb Time International Ratio 1.08 0.85-1.15 Activated Partial Thromboplast Time 28.1 26.3-35.5 SEC Current Medications Medications (Trade) Dose Ordered Sig/Becca Route PRN Reason Start Time Stop Time Status Last Admin Dose Admin Acetaminophen (TYLenol 325MG TAB) 650 mg Q6H PRN PO FEVER/MILD PAIN LEVEL 1-3 06/09/24 06:00 07/09/24 05:59 Acetaminophen (TYLenol 650MG SUPPOSITORY) 650 mg Q6H PRN RC FEVER / MILD PAIN 1-3 IF NPO 06/09/24 06:00 07/09/24 05:59 Amlodipine Besylate (NorvASC 2.5MG TAB) 2.5 mg DAILY PO 06/09/24 09:00 06/09/24 23:43 DC 06/09/24 20:02 2.5 MG Amlodipine Besylate (NorvASC 2.5MG TAB) 2.5 mg HS PO 06/10/24 21:00 07/09/24 08:59 Carbidopa/Levodopa (Carbidopa-Levo Er 50-200 Tab) 1 each DAILY PO 06/11/24 09:00 07/11/24 08:59 Carbidopa/Levodopa (Carbidopa-Levo Er 50-200 Tab) 1 each DAILY05 PO 06/11/24 05:00 07/11/24 04:59 Carbidopa/Levodopa (Carbidopa-Levo Er 50-200 Tab) 1 each DAILY14 PO 06/11/24 14:00 07/11/24 13:59 Carbidopa/Levodopa (Carbidopa-Levo Er 50-200 Tab) 1 each HS PO 06/10/24 21:00 07/10/24 20:59 Carbidopa/Levodopa (Carbidopa-Levo Er 50-200 Tab) 1 each QID PO 06/09/24 17:00 06/10/24 13:07 DC 06/10/24 13:02 1 EACH Carbidopa/Levodopa (Sinemet 25-100 Tab) 1 each QID PO 06/09/24 09:00 06/09/24 14:29 DC 06/09/24 13:16 1 EACH Docusate Sodium (COLace 100MG CAP) 100 mg BID PRN PO c 06/09/24 06:00 07/09/24 05:59 Docusate Sodium (COLace 100MG CAP) 100 mg DAILY PO 06/09/24 09:00 06/10/24 13:07 DC 06/09/24 08:22 100 MG Docusate Sodium (COLace 100MG CAP) 100 mg DAILYDINNER PO 06/10/24 17:00 07/09/24 08:59 Folic Acid (FOLic ACID 1 MG TABLET) 1 mg DAILY PO 06/09/24 09:00 07/09/24 08:59 06/10/24 11:21 1 MG Gabapentin (NEURontin 100 mg CAP) 100 mg DAILY PO 06/11/24 09:00 07/11/24 08:59 Gabapentin (NEURontin 100 mg CAP) 100 mg DAILY05 PO 06/11/24 05:00 07/11/24 04:59 Gabapentin (NEURontin 100 mg CAP) 100 mg DAILY14 PO 06/11/24 14:00 07/11/24 13:59 Gabapentin (NEURontin 100 mg CAP) 100 mg TID PO 06/09/24 09:00 06/10/24 13:07 DC 06/10/24 13:02 100 MG Hydralazine HCl (APRESOLine 20MG INJ) 10 mg Q2H PRN IV SBP GREATER THAN 160 06/09/24 06:00 07/09/24 05:59 Lactulose (Constulose 20gm/ 30ml Udcup) 20 gm Q6H PRN PO CONSTIPATION 06/09/24 06:00 07/09/24 05:59 Levothyroxine Sodium (SYNTHroid 100MCG TAB) 100 mcg SYN PO 06/09/24 06:30 07/09/24 06:29 06/10/24 06:19 100 MCG Lisinopril (Prinivil 10mg) 10 mg DAILY PO 06/09/24 09:00 07/09/24 08:59 06/10/24 08:20 10 MG Magnesium Sulfate 50 ml @ 0 mls/hr PROTOCOL PRN IV MAGNESIUM PROTOCOL 06/10/24 09:00 07/10/24 08:59 Ondansetron HCl (zoFRAN 4MG INJ) 4 mg Q6H PRN IVP NAUSEA/VOMITING 06/09/24 06:00 07/09/24 05:59 Piperacillin Sod/ Tazobactam Sod (Zosyn 3.375gm+NS 50ml) 3.375 gm Q8H IVPB 06/09/24 05:00 06/19/24 04:59 06/10/24 13:02 3.375 GM Potassium Chloride 100 ml @ 100 mls/hr AD PRN IV POTASSIUM PROTOCOL 06/10/24 09:00 07/10/24 08:59 Potassium Chloride (K-Dur/Klor-Con 20meq) 20 meq AD PRN PO POTASSIUM PROTOCOL 06/10/24 09:00 07/10/24 08:59 Potassium Chloride (KCl 10% Elixir 20meq/15ml) 20 meq AD PRN PO POTASSIUM PROTOCOL 06/10/24 09:00 07/10/24 08:59 06/10/24 11:21 20 MEQ Sodium Chloride 1,000 ml @ 250 mls/hr Q4H IV 06/10/24 00:00 06/10/24 04:00 DC 06/09/24 23:59 250 MLS/HR Sodium Chloride (NS 50ml) 50 ml AD IV 06/09/24 05:00 06/09/24 05:01 DC Temazepam (restORIL 15 MG CAP) 15 mg HS PRN PO INSOMNIA/SLEEP 06/09/24 06:00 07/09/24 05:59 Vitamin B Complex (Vitamin B-12) 1,000 mcg DAILY PO 06/09/24 09:00 07/09/24 08:59 06/10/24 11:21 1,000 MCG DIAGNOSTICS / RADIOLOGY: [place] [address] IMAGING REPORT Signed PATIENT: DIANA DUMONT MR#: [id number] : 12/17/1952 SEX: F AGE: 71 LOCATION: 3AH ORDER 0101 STATUS: ADM IN REPORT#: [id number] SERVICE 0059 REASON: r/o bladder obstruction ORDERING PHYSICIAN: RO SERRA PROCEDURE: ABD PEL WO - CT ABDOMEN/PELVIS W/O CONTRAST CT ABDOMEN WITHOUT CONTRAST. CT PELVIS WITHOUT CONTRAST. INDICATION: Evaluate for bladder obstruction TECHNIQUE: Routine transaxial imaging using 5 mm slice thickness through the abdomen and pelvis without the administration of IV contrast. Thin slice reconstructions are also provided. Coronal and sagittal reformatted images acquired for interpretation. CT was performed with one or more of the following dose reduction techniques: Automated exposure control, adjustment of the mA and/or kV according to patient size, or use of iterative reconstruction technique. COMPARISON: None FINDINGS: ON NONCONTRAST IMAGING: ABDOMEN: Heart size is normal. Visible lung bases are clear. No abnormal renal calcifications, hydronephrosis, perinephric inflammation, or proximal hydroureter detected. Curvilinear calcification at the upper pole of the right kidney and larger linear calcification at the mid to upper portion of the left kidney appear to be of vascular in origin. The liver is normal in size and smooth in contour without biliary duct dilation. The spleen is normal in size and attenuation. The gallbladder appears normal. The pancreas appears normal without pancreatic duct dilation. The adrenal glands appear normal. No significant abdominal, retrocrural or retroperitoneal adenopathy noted. No evidence for intra-abdominal free air or organized fluid collection. Mild calcific plaque is noted along the abdominal aortic and iliac vessel alberto without aneurysmal dilation. PELVIS: Sal catheter occupies the urinary bladder. No evidence for free air or organized pelvic fluid collection. No significant pelvic adenopathy detected. Moderate rectal fecal impaction. Terminal ileum appears unremarkable. The appendix appears normal. Visible osseous structures are intact. IMPRESSION: Sal catheter within the normal-sized urinary bladder, without evidence for any acute intra-abdominal or pelvic process, including no evidence for cystitis. Additional minor findings and pertinent negatives as reported. DICTATED BY: JAMISON ZHANG MD DATE: 06/09/24803 ELECTRONICALLY SIGNED BY: JAMISON ZHANG MD DATE: 06/09/24808 ASSESSMENT: Acute complicated cystitis, POA Chronic Sal catheter use Anemia Electrolyte derangement (hyponatremia, hypochloremia) Parkinson's disease Hypertension Hypercholesteremia HX: UTIs & ESBL in the urine PLAN: Continue to monitor the patient on [facility] [place] [place] floor. Acute complicated cystitis, POA Chronic Sal catheter use Continue Zosyn 3.375 IV q.8 hours. Urine culture is positive > 135633 CFU. Sensitivity and susceptibility pending Antibiotic therapy tailored to urine culture results. Deescalate antibiotics when appropriate. CT abdomen and pelvis revealed no evidence of cystitis Sal catheter change per nursing staff. Parkinson's disease Continue carbidopa levodopa as prescribed Hypertension Continue home medication Amlodipine. Hydralazine IV p.r.n. if systolic blood pressures above 160 Electrolyte derangement (hyponatremia, hypochloremia, hypokalemia) Sodium improved to 140, chloride 104 Potassium down to 3.3 from 3.9 Hypokalemia protocol Resume patient's home medications: Amlodipine, carbidopa levodopa, vitamin B12, docusate, folic acid, gabapentin, levothyroxine, lisinopril. Oxygen as needed to keep SpO2 equal to greater than 92%. P.r.n. medications for: Pain management, fever, hypertension, nausea, vomiting, constipation. Glucometer checks a.c. and HS with insulin regular sliding scale per protocol. GI and DVT prophylaxis. ATTESTATION BY PHYSICIAN I have seen and examined the patient. I reviewed the documentation, medical decision making, and treatment plan as noted by the resident provider above. I agree with the findings and plan of care. Lizzie Bar MD, KRUPALI P MD Jun 10, 2024 14:44
--- NOTE | 2024-06-10 15:49 | NUR ---
[facility] Consult: Patient assessed by wound healing team. See wound assessment. Assessment and recommendations provided to primary nurse. Education provided. Addendum: 06/11/24 at 1628 by PJ SANTORO RN RN/ Amended: Links added.
[2024-06-10] MEDS: doCUSate SODIUM 100 MG CAP PO SCH (17:00)
--- NOTE | 2024-06-10 17:09 | CONS ---
CONSULTATION NOTE Date of Service: Jun 10, 2024 Reason for Consultation: Pressure ulcer on the right buttock area Requesting Physician: Hospitalist team HISTORY OF PRESENT ILLNESS: [ Ms. Dumont is a 71-year-old female with a history of UTIs, chronic Sal, hx of ESBL in the urine, Parkinson's, hypercholesteremia, and hypertension who [place] [facility] evaluation of suprapubic abdominal pain, Sal problem, hematuria, and dark urine onset the last four days. The patient reported discomfort to the urinary meatus, noted large amount of hematuria, then the urine in the bag looked brownish in color. Today the Sal catheter had decreased output, was leaking around, and for which the family believed it was clogged. The patient reported subjective fevers for the last couple of days. The patient does not ambulate at baseline due to her extensive history of Parkinson's. The patient lives with her elderly who takes care of her. The patient is not able to follow up with her PCP given that her 's not able to transfer her in the car anymore. ED change the patient's Sal to a three-way Sal catheter. In case irrigation was needed, no irrigation was done. ED provider request patient be admitted with the diagnosis of UTI. The patient was admitted under the [facility] hospitalist team. I assess the patient at bedside in ED #15. Patient's breathing was even, unlabored, in no distress. Patient's oral mucosa is dry, has bags under her eyes, I appears to be slightly sunken in. Patient has resting tremors to her bilateral upper extremities, R>L. Labs reviewed: Hemoglobin 9.6, platelet 376. Coags unremarkable. Na 132, chloride 97, K 3.9. BUN and creatinine are unremarkable. CT abdomen and pelvis: Sal catheter within normal size urinary bladder, without evidence of any acute intra-abdominal or pelvic process, including no evidence for cystitis. The patient and the were very conversive. They asked multiple questions were addressed by me. I informed them of labs, diagnostics, plan of care. They verbalized understanding and are in agreement with the plan. Plan and assessment are listed below. 06/10/2024. This is a 71-year-old female with history of multiple comorbidities seen at the bedside for initial wound care evaluation and management of stage II pressure ulcer on the left buttock area, the ulcer is clean with no sign infection no purulent drainage no periwound erythema. Bilateral heels are intact no other concerns from the wound care standpoint. Patient is alert and cooperative she is not in acute distress patient's is at the bedside during my physical exam primary nurse assisting me with the physical exam. No other concerns from the wound care standpoint. REVIEW OF SYSTEMS CONSTITUTIONAL: Denies fever, chills, or fatigue. HEAD/FACE: No signs of trauma. EENT: Denies eye pain, blurred vision, double vision, or light sensitivity. RESPIRATORY: Denies shortness of breath, cough, wheezing CARDIOVASCULAR: Denies chest pain, palpitation, syncope GASTROINTESTINAL/ABDOMINAL: Denies abdominal pain, constipation, diarrhea, nausea or vomiting GENITOURINARY: Denies dysuria or hematuria. MUSCULOSKELETAL: Denies joint pain, tenderness, or trauma. INTEGUMENTARY: Denies rash or itchiness NEUROLOGICAL/PSYCH: Denies anxiety, depression, heat or cold intolerance. PAST MEDICAL HISTORY: As mentioned above PAST SURGICAL HISTORY: None PAST SOCIAL HISTORY: Denies alcohol, tobacco, illicit drug use FAMILY HISTORY: Noncontributory Coded Allergies: amoxicillin (Unverified Allergy, Unknown, HIVES, 06/09/24) aspirin (Unverified Allergy, Unknown, HIVES, 06/09/24) levofloxacin (Unverified Allergy, Unknown, ITCHING, 06/09/24)] Coded Allergies: amoxicillin (Unverified Allergy, Unknown, HIVES, 06/09/24) aspirin (Unverified Allergy, Unknown, HIVES, 06/09/24) levofloxacin (Unverified Allergy, Unknown, ITCHING, 06/09/24) PHYSICAL EXAM EYES: Anicteric. Pupils equal and reactive. HENT: No oral thrush seen, moist Oral mucosa NECK: Supple, no JVD or thyromegaly. LUNGS: Good air entry. No rales, no rhonchi. CARDIOVASCULAR: S1, S2 regular. No murmur heard. ABDOMEN: Soft, non tender, bowel sounds present, no organomegaly CENTRAL NERVOUS SYSTEM: Awake, alert, oriented x 3. No focal deficits. SKIN: Stage II pressure ulcer on the right buttock area, no periwound erythema, no drainage, no tenderness to palpation. LYMPHATICS: No peripheral lymphadenopathy MUSCULOSKELETAL: No joint swelling, erythema or tenderness. EXTREMITIES: No cyanosis or clubbing BACK: No deformity, no pressure ulcer. GENITOURINARY: No dysuria or hematuria Vital Sign (Last 24 Hours) 06/10/24 06/10/24 09:25 12:00 Temp 98.2 Pulse 75 Resp 18 B/P (MAP) 102/51 Pulse Ox 98 O2 Delivery Room Air O2 Flow Rate 0 FiO2 21 Intake & Output (last 24hrs) 06/09/24 06/09/24 06/10/24 15:00 23:00 07:00 Output Total 600 ml 700 ml Balance -600 ml -700 ml LABS: Laboratory: Test 06/10/24 04:11 06/09/24 02:24 06/09/24 01:19 Range/Units White Blood Count 5.1 4.8-10.8 K/uL Red Blood Count 3.19 L 4.00-5.50 MIL/uL Hemoglobin 9.7 L 12.0-16.0 g/dL Hematocrit 29.5 L 36-48 % Mean Corpuscular Volume 92.5 79-99 fL Mean Corpuscular Hemoglobin 30.4 27.0-33.0 pg Mean Corpuscular Hemoglobin Concent 32.9 32.0-36.0 g/dL Red Cell Distribution Width 14.8 11.0-15.5 % Platelet Count 354 130-400 K/uL Mean Platelet Volume 8.7 7.5-10.5 fL Nucleated Red Blood Cells 0.0 0.0-0.19 % Sodium Level 140 136-145 mmol/L Potassium Level 3.3 L 3.5-5.1 mmol/L Chloride Level 104 101-111 mmol/L Carbon Dioxide Level 26 21-32 mmol/L Blood Urea Nitrogen 7 7-18 mg/dL Creatinine 0.5 0.5-1.0 mg/dL Glomerular Filtration Rate Calc 100 >90 mL/min Random Glucose 88 70-105 mg/dL Total Calcium 8.4 L 8.5-10.1 mg/dL Phosphorus Level 3.1 2.5-4.9 mg/dL Magnesium Level 2.00 1.80-2.40 mg/dL Urine Color LIGHT-YELLOW YELLOW Urine Appearance CLOUDY H CLEAR Urine pH 7.5 5.0-8.0 Urine Specific [place] 1.005 1.001-1.031 Urine Protein NEGATIVE NEGATIVE mg/dL Urine Glucose (UA) NEGATIVE NEGATIVE mg/dL Urine Ketones NEGATIVE NEGATIVE mg/dL Urine Occult Blood NEGATIVE NEGATIVE Urine Nitrate NEGATIVE NEGATIVE Urine Bilirubin NEGATIVE NEGATIVE mg/dL Urine Urobilinogen 0.2 0.2-1.0 mg/dL Urine Leukocyte Esterase 500 H NEGATIVE Soo/uL Urine RBC 2-5 H 0-1 /HPF Urine WBC 51-100 H 0-1 /HPF Urine WBC Clumps (Auto) FEW 0-1 /HPF Urine Squamous Epithelial Cells RARE 0-2 /HPF Urine Bacteria MOD None Seen /HPF Urine Yeast RARE None Seen /HPF Immature Granulocyte % (Auto) 0.3 0-1 % Neutrophils (%) (Auto) 72.2 40.0-77.0 % Lymphocytes (%) (Auto) 16.8 L 21.0-51.0 % Monocytes (%) (Auto) 7.9 3.0-13.0 % Eosinophils (%) (Auto) 2.3 0.0-8.0 % Basophils (%) (Auto) 0.5 0.0-5.0 % Neutrophils # (Auto) 4.7 1.8-7.7 K/uL Lymphocytes # (Auto) 1.1 1.0-4.8 K/uL Monocytes # (Auto) 0.5 0.1-1.0 K/uL Eosinophils # (Auto) 0.15 0.00-0.70 K/uL Basophils # (Auto) 0.03 0.00-0.20 K/uL Absolute Immature Granulocyte (auto 0.02 0-1 K/uL Prothrombin Time 11.4 9.6-11.6 SEC Prothromb Time International Ratio 1.08 0.85-1.15 Activated Partial Thromboplast Time 28.1 26.3-35.5 SEC DIAGNOSTICS / RADIOLOGY: [ ] PROBLEM LIST : Medical Problems: (1) UTI (urinary tract infection) ICD Codes: N39.0 - Urinary tract infection, site not specified PLAN: Balanced protein calorie intake to promote wound healing. Physical therapy if amenable. Aggressive offloading repositioning the patient every 2 hours per protocol. Full skin exam b.i.d.. Manage incontinence if pertinent. Comorbidities per primary team. Apply Venelex ointment t.i.d. and p.r.n. of the pressure ulcer and the entire buttock area liver open to air. Further management per hospital course. Thank you for the consultation and allowing me to participate in the care of your patient. RANJAN JUNG MD Jun 10, 2024 17:09
[2024-06-10] MEDS: BALSAM PERU/CASTOR OIL 60 GM TUBE TP SCH (20:52)
[2024-06-10] MEDS: CARBIDOPA/LEVODOPA ER 50-200 1 EACH TABLET.ER PO SCH (20:52)
[2024-06-10] MEDS: amLODIPine 2.5 MG TAB PO SCH (20:53)
[2024-06-11] VITALS (7 sets, daily range): BP systolic 96–142; BP diastolic 44–67; PULSE 52–68; RESP 18–19; TEMP 97.5–98.1; O2SAT 99
[2024-06-11] MEDS: CARBIDOPA/LEVODOPA ER 50-200 1 EACH TABLET.ER PO SCH ×3 (04:35→13:48)
[2024-06-11] MEDS: GABApentin 100 MG CAPSULE PO SCH ×3 (04:35→13:23)
[2024-06-11 04:56] LABS: BASOPHILS # (AUTO) 0.03 K/uL (0.00-0.20); BASOPHILS % (AUTO) 0.7 % (0.0-5.0); EOSINOPHILS # (AUTO) 0.33 K/uL (0.00-0.70); EOSINOPHILS % (AUTO) 7.5 % (0.0-8.0); HEMATOCRIT 29.8 % (36-48); IMMATURE GRANULOCYTE ABSOLUTE 0.02 K/uL (0-1); LYMPHOCYTES # (AUTO) 1.2 K/uL (1.0-4.8); LYMPHOCYTES % (AUTO) 27.2 % (21.0-51.0); MEAN CORPUSCULAR HEMOGLOBIN 30.5 pg (27.0-33.0); MEAN CORPUSCULAR HGB CONC 32.2 g/dL (32.0-36.0); MEAN CORPUSCULAR VOLUME 94.6 fL (79-99); MONOCYTES # (AUTO) 0.3 K/uL (0.1-1.0); MONOCYTES % (AUTO) 7.3 % (3.0-13.0); NEUTROPHILS # (AUTO) 2.5 K/uL (1.8-7.7); NEUTROPHILS % (AUTO) 56.8 % (40.0-77.0); PLATELET COUNT (AUTO) 327 K/uL (130-400); RED BLOOD CELL COUNT(AUTO) 3.15 MIL/uL (4.00-5.50); RED CELL DISTRIBUTION WIDTH 15.3 % (11.0-15.5); WHITE BLOOD COUNT (AUTO) 4.4 K/uL (4.8-10.8)
[2024-06-11 05:12] LABS: CREATININE 0.5 mg/dL (0.5-1.0)
--- NOTE | 2024-06-11 08:31 | NUR ---
DCP -- Home Patient speaks Swedish. Patient lives with spouse in a house of employer it has a ramp entrance and walk in shower. States she is disabled due to Parkinson's, makes her own decisions and does not drive, requires transportation. States she needs full assistance to complete ADL's; basically bedridden. States she has a shower chair, wheelchair and hospital bed. Denies home health services, home care provider or dialysis. PCP - [facility]. Upon discharge, states will need transportation and assistance to do follow up with PCP. Referred to [facility]; notified Anette. Addendum: 06/11/24 at 0839 by ANGEL MEAD RN CM Amended: Links added.
--- NOTE | 2024-06-11 13:12 | PN ---
[facility] PROGRESS NOTE Date of Service: Jun 11, 2024 Time of Service: 12:58 SUBJECTIVE: Ms. Dumont is a 73-year-old female with a history of UTIs, chronic Sal, hx of ESBL in the urine, Parkinson's, hypercholesteremia, and hypertension who presented to [facility] for evaluation of suprapubic abdominal pain, Sal problem, hematuria, and dark urine onset the last four days. The patient reported discomfort to the urinary meatus, noted large amount of hematuria, then the urine in the bag looked brownish in color. Today the Sal catheter had decreased output, was leaking around, and for which the family believed it was clogged. The patient reported subjective fevers for the last couple of days. The patient does not ambulate at baseline due to her extensive history of Parkinson's. The patient lives with her elderly who takes care of her. The patient is not able to follow up with her PCP given that her 's not able to transfer her in the car anymore. ED change the patient's Sal to a three-way Sal catheter. In case irrigation was needed, no irrigation was done. ED provider request patient be admitted with the diagnosis of UTI. The patient was admitted under the [facility] hospitalist team. I assess the patient at bedside in ED #[id number]. Patient's breathing was even, unlabored, in no distress. Patient's oral mucosa is dry, has bags under her eyes, I appears to be slightly sunken in. Patient has resting tremors to her bilateral upper extremities, R>L. Labs reviewed: Hemoglobin 9.6, platelet 376. Coags unremarkable. Na 132, chloride 97, K 3.9. BUN and creatinine are unremarkable. CT abdomen and pelvis: Sal catheter within normal size urinary bladder, without evidence of any acute intra-abdominal or pelvic process, including no evidence for cystitis. 06/10/24 the patient is seen and examined this morning, her being at the bedside. Her nurse helped with the translation. On Examination Patient has significant resting tremor. As per the nurse, patient is having suprapubic pain which happen go away after she urinates. She also has a tenderness in lower abd ominal pain. Her urine bag connected clear straw-colored urine without any blood. Urine analysis is consistent with UTI. Urine cultures positive for >[id number] CFU and sensitivity and susceptibility to follow. Continue with Zosyn Q 8 IVPB. 06/11/24 the patient was evaluated this morning. Her is at the bedside who states that she did not have good sleep last night. She is complaining of suprapubic pain, tenderness is present on examination. Urine culture is positive for ESBL, E coli and Proteus mirabilis. Wound management saw her for pressure ulcer on right buttock area and recommending balance protein calorie intake, Venelex ointment t.i.d. and offloading. Her blood pressure was 96/44 this morning. Consider IV bolus 250 IV and rechecked blood pressure if it continues to remain low. Infectious disease consult requested. REVIEW OF SYSTEMS CONSTITUTIONAL: Denies fevers, chills, or night sweats. No unintentional weight loss reported. NEUROLOGICAL: Denies headache, amaurosis fugax, motor weakness, sensory deficit, vertigo/spinning sensation, gait abnormalities, or tremors. ENT: No hearing loss, otalgia, otorrhea, rhinitis, rhinorrhea, hoarseness, or sore throat. CARDIOVASCULAR: Denies any exertional angina, dyspnea on exertion, orthopnea, paroxysmal nocturnal dyspnea, palpitations, life-threatening arrhythmias, claudication. Complains of chest discomfort PULMONARY: Denies any shortness of breath, cough, phlegm/sputum, hemoptysis, pleuritic chest pain. SLEEP: Denies morning headaches, daytime somnolence or napping. Denies difficulty falling asleep, staying asleep, waking from sleep. Denies knowledge of snoring. GASTROINTESTINAL: Denies any type of dysphagia to either liquids or solids. Denies nausea, vomiting, pyrosis, early satiety, abdominal pain, diarrhea, constipation, or changes in stool consistency or caliber. Denies coffee-ground emesis, hematemesis, hematochezia, or melanotic stools. GENITOURINARY: Sal catheter present. Denies frequency, urgency, nocturia, hematuria or incontinence (Storage/Irritative symptoms.) Low urinary stream, straining to void, urinary intermittency or hesitancy, splitting of the voiding stream, terminal dribbling. ENDOCRINOLOGIC: Denies polyuria, polydipsia, polyphagia or heat/cold intolerances. HEMATOLOGIC: Denies thrombophilia/previous clots, or coagulopathy/bleeding disorders. ONCOLOGIC: Denies personal history of malignancy. DERMATOLOGIC: Denies rashes or pruritus. PSYCHIATRIC: Denies any suicidal or homicidal ideation. Denies hallucinations. PHYSICAL EXAM GENERAL APPEARANCE: The patient is awake, alert, and oriented, in no acute cardiopulmonary distress. NEUROLOGICAL: Cranial nerves II-XII grossly intact. Motor is 5/5 in bilateral upper and lower extremities proximal to distal. No sensory deficits. HEENT: Face is symmetric. Pupils are equal and reactive. Extraocular movements are intact. NECK: Supple. No JVD. No thyromegaly. No submental, submandibular, pre- /postauricular, occipital or supraclavicular lymphadenopathy. CHEST: Normal chest expansion. No Telemetry. LUNGS: Absence of any rales, rhonchi or any wheezing. CARDIOVASCULAR: Regular. S1 and S2 normal. No appreciable rubs, murmurs or gallops. ABDOMEN: Suprapubic tenderness present. Soft and nondistended. There is no rebound, voluntary guarding, or rigidity. : Three-way Sal catheter in place. No bleeding noted. No discharge or drainage around the Sal. EXTREMITIES: Non-edematous and not cyanotic. No clubbing. Good capillary refill. SKIN: No skin breakdown. Vital Signs (last 8hr) Date Time Temp Pulse Resp B/P (MAP) Pulse Ox O2 Delivery O2 Flow Rate FiO2 06/11/24 08:00 97.7 59 18 96/44 99 Room Air LABS: Laboratory: Test 06/11/24 04:16 06/10/24 04:11 Range/Units White Blood Count 4.4 L 4.8-10.8 K/uL Red Blood Count 3.15 L 4.00-5.50 MIL/uL Hemoglobin 9.6 L 12.0-16.0 g/dL Hematocrit 29.8 L 36-48 % Mean Corpuscular Volume 94.6 79-99 fL Mean Corpuscular Hemoglobin 30.5 27.0-33.0 pg Mean Corpuscular Hemoglobin Concent 32.2 32.0-36.0 g/dL Red Cell Distribution Width 15.3 11.0-15.5 % Platelet Count 327 130-400 K/uL Mean Platelet Volume 9.1 7.5-10.5 fL Immature Granulocyte % (Auto) 0.5 0-1 % Neutrophils (%) (Auto) 56.8 40.0-77.0 % Lymphocytes (%) (Auto) 27.2 21.0-51.0 % Monocytes (%) (Auto) 7.3 3.0-13.0 % Eosinophils (%) (Auto) 7.5 0.0-8.0 % Basophils (%) (Auto) 0.7 0.0-5.0 % Neutrophils # (Auto) 2.5 1.8-7.7 K/uL Lymphocytes # (Auto) 1.2 1.0-4.8 K/uL Monocytes # (Auto) 0.3 0.1-1.0 K/uL Eosinophils # (Auto) 0.33 0.00-0.70 K/uL Basophils # (Auto) 0.03 0.00-0.20 K/uL Absolute Immature Granulocyte (auto 0.02 0-1 K/uL Nucleated Red Blood Cells 0.0 0.0-0.19 % Sodium Level 137 136-145 mmol/L Potassium Level 4.0 3.5-5.1 mmol/L Chloride Level 101 101-111 mmol/L Carbon Dioxide Level 29 21-32 mmol/L Blood Urea Nitrogen 4 L 7-18 mg/dL Creatinine 0.5 0.5-1.0 mg/dL Glomerular Filtration Rate Calc 100 >90 mL/min Random Glucose 77 70-105 mg/dL Total Calcium 8.9 8.5-10.1 mg/dL Phosphorus Level 3.1 2.5-4.9 mg/dL Magnesium Level 2.00 1.80-2.40 mg/dL Current Medications Medications (Trade) Dose Ordered Sig/Becca Route PRN Reason Start Time Stop Time Status Last Admin Dose Admin Acetaminophen (TYLenol 325MG TAB) 650 mg Q6H PRN PO FEVER/MILD PAIN LEVEL 1-3 06/09/24 06:00 07/09/24 05:59 Acetaminophen (TYLenol 650MG SUPPOSITORY) 650 mg Q6H PRN RC FEVER / MILD PAIN 1-3 IF NPO 06/09/24 06:00 07/09/24 05:59 Amlodipine Besylate (NorvASC 2.5MG TAB) 2.5 mg DAILY PO 06/09/24 09:00 06/09/24 23:43 DC 06/09/24 20:02 2.5 MG Amlodipine Besylate (NorvASC 2.5MG TAB) 2.5 mg HS PO 06/10/24 21:00 07/09/24 08:59 Carbidopa/Levodopa (Carbidopa-Levo Er 50-200 Tab) 1 each DAILY PO 06/11/24 09:00 07/11/24 08:59 06/11/24 09:40 1 EACH Carbidopa/Levodopa (Carbidopa-Levo Er 50-200 Tab) 1 each DAILY05 PO 06/11/24 05:00 07/11/24 04:59 06/11/24 04:35 1 EACH Carbidopa/Levodopa (Carbidopa-Levo Er 50-200 Tab) 1 each DAILY14 PO 06/11/24 14:00 07/11/24 13:59 Carbidopa/Levodopa (Carbidopa-Levo Er 50-200 Tab) 1 each HS PO 06/10/24 21:00 07/10/24 20:59 06/10/24 20:52 1 EACH Carbidopa/Levodopa (Carbidopa-Levo Er 50-200 Tab) 1 each QID PO 06/09/24 17:00 06/10/24 13:07 DC 06/10/24 13:02 1 EACH Carbidopa/Levodopa (Sinemet 25-100 Tab) 1 each QID PO 06/09/24 09:00 06/09/24 14:29 DC 06/09/24 13:16 1 EACH Docusate Sodium (COLace 100MG CAP) 100 mg BID PRN PO c 06/09/24 06:00 07/09/24 05:59 Docusate Sodium (COLace 100MG CAP) 100 mg DAILY PO 06/09/24 09:00 06/10/24 13:07 DC 06/09/24 08:22 100 MG Docusate Sodium (COLace 100MG CAP) 100 mg DAILYDINNER PO 06/10/24 17:00 07/09/24 08:59 Folic Acid (FOLic ACID 1 MG TABLET) 1 mg DAILY PO 06/09/24 09:00 07/09/24 08:59 06/11/24 09:41 1 MG Gabapentin (NEURontin 100 mg CAP) 100 mg DAILY PO 06/11/24 09:00 07/11/24 08:59 06/11/24 09:41 100 MG Gabapentin (NEURontin 100 mg CAP) 100 mg DAILY05 PO 06/11/24 05:00 07/11/24 04:59 06/11/24 04:35 100 MG Gabapentin (NEURontin 100 mg CAP) 100 mg DAILY14 PO 06/11/24 14:00 07/11/24 13:59 Gabapentin (NEURontin 100 mg CAP) 100 mg TID PO 06/09/24 09:00 06/10/24 13:07 DC 06/10/24 13:02 100 MG Hydralazine HCl (APRESOLine 20MG INJ) 10 mg Q2H PRN IV SBP GREATER THAN 160 06/09/24 06:00 07/09/24 05:59 Lactulose (Constulose 20gm/ 30ml Udcup) 20 gm Q6H PRN PO CONSTIPATION 06/09/24 06:00 07/09/24 05:59 Levothyroxine Sodium (SYNTHroid 100MCG TAB) 100 mcg SYN PO 06/09/24 06:30 07/09/24 06:29 06/11/24 05:40 100 MCG Lisinopril (Prinivil 10mg) 10 mg DAILY PO 06/09/24 09:00 07/09/24 08:59 06/10/24 08:20 10 MG Magnesium Sulfate 50 ml @ 0 mls/hr PROTOCOL PRN IV MAGNESIUM PROTOCOL 06/10/24 09:00 07/10/24 08:59 Ondansetron HCl (zoFRAN 4MG INJ) 4 mg Q6H PRN IVP NAUSEA/VOMITING 06/09/24 06:00 07/09/24 05:59 Piperacillin Sod/ Tazobactam Sod (Zosyn 3.375gm+NS 50ml) 3.375 gm Q8H IVPB 06/09/24 05:00 06/19/24 04:59 06/11/24 04:35 3.375 GM Potassium Chloride 100 ml @ 100 mls/hr AD PRN IV POTASSIUM PROTOCOL 06/10/24 09:00 07/10/24 08:59 Potassium Chloride (K-Dur/Klor-Con 20meq) 20 meq AD PRN PO POTASSIUM PROTOCOL 06/10/24 09:00 07/10/24 08:59 Potassium Chloride (KCl 10% Elixir 20meq/15ml) 20 meq AD PRN PO POTASSIUM PROTOCOL 06/10/24 09:00 07/10/24 08:59 06/10/24 16:59 20 MEQ Sodium Chloride 1,000 ml @ 250 mls/hr Q4H IV 06/10/24 00:00 06/10/24 04:00 DC 06/09/24 23:59 250 MLS/HR Sodium Chloride (NS 50ml) 50 ml AD IV 06/09/24 05:00 06/09/24 05:01 DC Temazepam (restORIL 15 MG CAP) 15 mg HS PRN PO INSOMNIA/SLEEP 06/09/24 06:00 07/09/24 05:59 Vitamin B Complex (Vitamin B-12) 1,000 mcg DAILY PO 06/09/24 09:00 07/09/24 08:59 06/11/24 09:40 1,000 MCG Wound Care/ Dressing Products (Venelex Ointment) apply to buttocks TID TP 06/10/24 21:00 07/10/24 20:59 06/11/24 09:41 1 [facility] RADIOLOGY: [place] [address] IMAGING REPORT Signed PATIENT: DIANA DUMONT MR#: [id number] : 12/17/1952 SEX: F AGE: 71 LOCATION: 3AH ORDER 0 STATUS: ADM IN REPORT#: [id number] SERVICE [id number] REASON: r/o bladder obstruction ORDERING PHYSICIAN: RO SERRA PROCEDURE: ABD PEL WO - CT ABDOMEN/PELVIS W/O CONTRAST CT ABDOMEN WITHOUT CONTRAST. CT PELVIS WITHOUT CONTRAST. INDICATION: Evaluate for bladder obstruction TECHNIQUE: Routine transaxial imaging using 5 mm slice thickness through the abdomen and pelvis without the administration of IV contrast. Thin slice reconstructions are also provided. Coronal and sagittal reformatted images acquired for interpretation. CT was performed with one or more of the following dose reduction techniques: Automated exposure control, adjustment of the mA and/or kV according to patient size, or use of iterative reconstruction technique. COMPARISON: None FINDINGS: ON NONCONTRAST IMAGING: ABDOMEN: Heart size is normal. Visible lung bases are clear. No abnormal renal calcifications, hydronephrosis, perinephric inflammation, or proximal hydroureter detected. Curvilinear calcification at the upper pole of the right kidney and larger linear calcification at the mid to upper portion of the left kidney appear to be of vascular in origin. The liver is normal in size and smooth in contour without biliary duct dilation. The spleen is normal in size and attenuation. The gallbladder appears normal. The pancreas appears normal without pancreatic duct dilation. The adrenal glands appear normal. No significant abdominal, retrocrural or retroperitoneal adenopathy noted. No evidence for intra-abdominal free air or organized fluid collection. Mild calcific plaque is noted along the abdominal aortic and iliac vessel alberto without aneurysmal dilation. PELVIS: Sal catheter occupies the urinary bladder. No evidence for free air or organized pelvic fluid collection. No significant pelvic adenopathy detected. Moderate rectal fecal impaction. Terminal ileum appears unremarkable. The appendix appears normal. Visible osseous structures are intact. IMPRESSION: Sal catheter within the normal-sized urinary bladder, without evidence for any acute intra-abdominal or pelvic process, including no evidence for cystitis. Additional minor findings and pertinent negatives as reported. DICTATED BY: JAMISON ZHANG MD DATE: 06/09/24803 ELECTRONICALLY SIGNED BY: JAMISON ZHANG MD DATE: 06/09/24808 ASSESSMENT: Acute complicated cystitis, POA Chronic Sal catheter use Anemia Electrolyte derangement (hyponatremia, hypochloremia) Parkinson's disease Pressure ulcer on right buttock POA Hypertension Hypercholesteremia HX: UTIs & ESBL in the urine PLAN: Continue to monitor the patient on Med surge floor. Acute complicated cystitis, POA Chronic Sal catheter use Continue Zosyn 3.375 IV q.8 hours. Urine culture is positive > [id number] CFU. Positive for ESBL and Proteus mirabilis, sensitive to Zosyn. Consultation with Infectious Disease requested and we will follow up with their recommendations. CT abdomen and pelvis revealed no evidence of cystitis Sal catheter change per nursing staff. Parkinson's disease Continue carbidopa levodopa as prescribed Hypertension Continue home medication Amlodipine. Hydralazine IV p.r.n. if systolic blood pressures above 160 Pressure is 96/44, we will recheck it and if it continues to remain low we will give her IV bolus. Anemia We will order iron panel studies Electrolyte derangement (hyponatremia, hypochloremia, hypokalemia) Are within normal range Hypokalemia protocol Pressure ulcer on right buttock POA Wound management consult appreciated and recommends Venelex ointment t.i.d., offloading measures, balanced protein calorie intake. Resume patient's home medications: Amlodipine, carbidopa levodopa, vitamin B12, docusate, folic acid, gabapentin, levothyroxine, lisinopril. Oxygen as needed to keep SpO2 equal to greater than 92%. P.r.n. medications for: Pain management, fever, hypertension, nausea, vomiting, constipation. Glucometer checks a.c. and HS with insulin regular sliding scale per protocol. GI and DVT prophylaxis. We will consult dietitian to help the patient with nutrition, protein rich diet ATTESTATION BY PHYSICIAN I have seen and examined the patient. I reviewed the documentation, medical decision making, and treatment plan as noted by the resident provider above. I agree with the findings and plan of care. Khai Pettit MD, KRUPALI P MD Jun 11, 2024 13:12
--- NOTE | 2024-06-11 20:41 | PN ---
INFECTIOUS DISEASE FOLLOWUP NOTE DATE OF SERVICE: 06/11/2024 SUBJECTIVE: The patient is seen and examined on bedside. No fever, no chills. No nausea, no vomiting. Tolerating antibiotic. No sore throat or rhinorrhea. No bleeding tendency. PHYSICAL EXAMINATION: VITAL SIGNS: Temperature today 98.7. EYES: No icterus. Pupils equal and reactive. HENT: No oral thrush seen. Moist oral mucosa. NECK: Supple. No JVD or thyromegaly. LUNGS: Good air entry. No rales, no rhonchi. CARDIOVASCULAR: S1, S2 regular. No murmur heard. ABDOMEN: Full, soft, nontender. Bowel sound is present. CENTRAL NERVOUS SYSTEM: Awake, alert, oriented x 3, bedbound debility. SKIN: No rashes, no itchiness. LYMPHATIC: No peripheral lymphadenopathy. BACK: No deformity. No pressure ulcer. GENITOURINARY: The patient on Sal catheter in place. No hematuria. ASSESSMENT: A 73-year-old female with multiple problems include: * Urinary retention. * Urinary tract infection. * Parkinson's disease. * Malnutrition. * Debility. PLAN: * Continue antibiotic. * Continue Sinemet. * Continue pain management. * Continue antiemetic. * Continue GI prophylaxis. * The patient will be followed up closely. TID: [id number] RECEIPT: [id number]
[2024-06-11] MEDS: hydrALAZine 20MG/ML VIAL IV PRN (23:53)
[2024-06-12] VITALS (9 sets, daily range): BP systolic 90–161; BP diastolic 41–78; PULSE 59–107; RESP 16–19; TEMP 97.4–98.1; O2SAT 95–96
[2024-06-12] MEDS: morPHINE 2 MG SYG IVP ONE (00:30)
--- NOTE | 2024-06-12 00:30 | NUR ---
PATIENT REFUSED IV MORPHINE, RETURNED TO [facility]
[2024-06-12 04:42] LABS: RETICULOCYTE % (AUTO) 2.01 % (0.42-2.23)
[2024-06-12 04:47] LABS: BASOPHILS # (AUTO) 0.02 K/uL (0.00-0.20); BASOPHILS % (AUTO) 0.3 % (0.0-5.0); EOSINOPHILS # (AUTO) 0.08 K/uL (0.00-0.70); HEMATOCRIT 29.5 % (36-48); IMMATURE GRANULOCYTE ABSOLUTE 0.05 K/uL (0-1); LYMPHOCYTES # (AUTO) 0.8 K/uL (1.0-4.8); LYMPHOCYTES % (AUTO) 10.1 % (21.0-51.0); MEAN CORPUSCULAR HEMOGLOBIN 29.9 pg (27.0-33.0); MEAN CORPUSCULAR HGB CONC 31.9 g/dL (32.0-36.0); MEAN CORPUSCULAR VOLUME 93.9 fL (79-99); MONOCYTES # (AUTO) 0.3 K/uL (0.1-1.0); MONOCYTES % (AUTO) 4.2 % (3.0-13.0); NEUTROPHILS # (AUTO) 6.6 K/uL (1.8-7.7); NEUTROPHILS % (AUTO) 83.8 % (40.0-77.0); PLATELET COUNT (AUTO) 320 K/uL (130-400); RED BLOOD CELL COUNT(AUTO) 3.14 MIL/uL (4.00-5.50); RED CELL DISTRIBUTION WIDTH 15.2 % (11.0-15.5); WHITE BLOOD COUNT (AUTO) 7.9 K/uL (4.8-10.8)
[2024-06-12 04:56] LABS: CREATININE 0.6 mg/dL (0.5-1.0); POTASSIUM 3.7 mmol/L (3.5-5.1)
[2024-06-12 05:09] LABS: % IRON SATURATION 17.3 % (22-44)
--- NOTE | 2024-06-12 11:31 | PN ---
[facility] PROGRESS NOTE Date of Service: Jun 12, 2024 Time of Service: 11:19 SUBJECTIVE: Ms. Dumont is a 73-year-old female with a history of UTIs, chronic Sal, hx of ESBL in the urine, Parkinson's, hypercholesteremia, and hypertension who presented to [facility] ED for evaluation of suprapubic abdominal pain, Sal problem, hematuria, and dark urine onset the last four days. The patient reported discomfort to the urinary meatus, noted large amount of hematuria, then the urine in the bag looked brownish in color. Today the Sal catheter had decreased output, was leaking around, and for which the family believed it was clogged. The patient reported subjective fevers for the last couple of days. The patient does not ambulate at baseline due to her extensive history of Parkinson's. The patient lives with her elderly who takes care of her. The patient is not able to follow up with her PCP given that her 's not able to transfer her in the car anymore. ED change the patient's Sal to a three-way Sal catheter. In case irrigation was needed, no irrigation was done. ED provider request patient be admitted with the diagnosis of UTI. The patient was admitted under the [facility] hospitalist team. I assess the patient at bedside in ED #15. Patient's breathing was even, unlabored, in no distress. Patient's oral mucosa is dry, has bags under her eyes, I appears to be slightly sunken in. Patient has resting tremors to her bilateral upper extremities, R>L. Labs reviewed: Hemoglobin 9.6, platelet 376. Coags unremarkable. Na 132, chloride 97, K 3.9. BUN and creatinine are unremarkable. CT abdomen and pelvis: Sal catheter within normal size urinary bladder, without evidence of any acute intra-abdominal or pelvic process, including no evidence for cystitis. 06/10/24 the patient is seen and examined this morning, her being at the bedside. Her nurse helped with the translation. On Examination Patient has significant resting tremor. As per the nurse, patient is having suprapubic pain which happen go away after she urinates. She also has a tenderness in lower abd ominal pain. Her urine bag connected clear straw-colored urine without any blood. Urine analysis is consistent with UTI. Urine cultures positive for >[id number] CFU and sensitivity and susceptibility to follow. Continue with Zosyn Q 8 IVPB. 06/11/24 the patient was evaluated this morning. Her is at the bedside who states that she did not have good sleep last night. She is complaining of suprapubic pain, tenderness is present on examination. Urine culture is positive for ESBL, E coli and Proteus mirabilis. Wound management saw her for pressure ulcer on right buttock area and recommending balance protein calorie intake, Venelex ointment t.i.d. and offloading. Her blood pressure was 96/44 this morning. Consider IV bolus 250 IV and rechecked blood pressure if it continues to remain low. Infectious disease consult requested. 06/12/24 the patient was seen and examined today morning. She states that her suprapubic pain is much improved today. Blood Pressure is 102/60 mmHg. 90/44 at the midnight. I will order physical therapy to help her sit on the bed edge and gradually for ambulation. Her iron panel showed iron 34, TIBC 196, saturation 17.3%, ferritin 498. Will Order IV iron sucrose. Continue Zosyn REVIEW OF SYSTEMS CONSTITUTIONAL: Denies fevers, chills, or night sweats. No unintentional weight loss reported. NEUROLOGICAL: Denies headache, amaurosis fugax, motor weakness, sensory deficit, vertigo/spinning sensation, gait abnormalities, or tremors. ENT: No hearing loss, otalgia, otorrhea, rhinitis, rhinorrhea, hoarseness, or sore throat. CARDIOVASCULAR: Denies any exertional angina, dyspnea on exertion, orthopnea, paroxysmal nocturnal dyspnea, palpitations, life-threatening arrhythmias, claudication. Complains of chest discomfort PULMONARY: Denies any shortness of breath, cough, phlegm/sputum, hemoptysis, pleuritic chest pain. SLEEP: Denies morning headaches, daytime somnolence or napping. Denies difficulty falling asleep, staying asleep, waking from sleep. Denies knowledge of snoring. GASTROINTESTINAL: Denies any type of dysphagia to either liquids or solids. Denies nausea, vomiting, pyrosis, early satiety, abdominal pain, diarrhea, constipation, or changes in stool consistency or caliber. Denies coffee-ground emesis, hematemesis, hematochezia, or melanotic stools. GENITOURINARY: Sal catheter present. Denies frequency, urgency, nocturia, hematuria or incontinence (Storage/Irritative symptoms.) Low urinary stream, straining to void, urinary intermittency or hesitancy, splitting of the voiding stream, terminal dribbling. ENDOCRINOLOGIC: Denies polyuria, polydipsia, polyphagia or heat/cold intolerances. HEMATOLOGIC: Denies thrombophilia/previous clots, or coagulopathy/bleeding disorders. ONCOLOGIC: Denies personal history of malignancy. DERMATOLOGIC: Denies rashes or pruritus. PSYCHIATRIC: Denies any suicidal or homicidal ideation. Denies hallucinations. PHYSICAL EXAM GENERAL APPEARANCE: The patient is awake, alert, and oriented, in no acute cardiopulmonary distress. NEUROLOGICAL: Cranial nerves II-XII grossly intact. Motor is 5/5 in bilateral upper and lower extremities proximal to distal. No sensory deficits. HEENT: Face is symmetric. Pupils are equal and reactive. Extraocular movements are intact. NECK: Supple. No JVD. No thyromegaly. No submental, submandibular, pre- /postauricular, occipital or supraclavicular lymphadenopathy. CHEST: Normal chest expansion. No Telemetry. LUNGS: Absence of any rales, rhonchi or any wheezing. CARDIOVASCULAR: Regular. S1 and S2 normal. No appreciable rubs, murmurs or gallops. ABDOMEN: Suprapubic tenderness present. Soft and nondistended. There is no rebound, voluntary guarding, or rigidity. : Three-way Sal catheter in place. No bleeding noted. No discharge or drainage around the Sal. EXTREMITIES: Non-edematous and not cyanotic. No clubbing. Good capillary refill. SKIN: No skin breakdown. Vital Signs (last 8hr) Date Time Temp Pulse Resp B/P (MAP) Pulse Ox O2 Delivery O2 Flow Rate FiO2 06/12/24 07:54 97.3 63 19 102/60 96 Room Air 06/12/24 04:40 98.1 74 17 110/45 97 Room Air LABS: Laboratory: Test 06/12/24 04:25 Range/Units White Blood Count 7.9 4.8-10.8 K/uL Red Blood Count 3.14 L 4.00-5.50 MIL/uL Hemoglobin 9.4 L 12.0-16.0 g/dL Hematocrit 29.5 L 36-48 % Mean Corpuscular Volume 93.9 79-99 fL Mean Corpuscular Hemoglobin 29.9 27.0-33.0 pg Mean Corpuscular Hemoglobin Concent 31.9 L 32.0-36.0 g/dL Red Cell Distribution Width 15.2 11.0-15.5 % Platelet Count 320 130-400 K/uL Mean Platelet Volume 9.2 7.5-10.5 fL Immature Granulocyte % (Auto) 0.6 0-1 % Neutrophils (%) (Auto) 83.8 H 40.0-77.0 % Lymphocytes (%) (Auto) 10.1 L 21.0-51.0 % Monocytes (%) (Auto) 4.2 3.0-13.0 % Eosinophils (%) (Auto) 1.0 0.0-8.0 % Basophils (%) (Auto) 0.3 0.0-5.0 % Neutrophils # (Auto) 6.6 1.8-7.7 K/uL Lymphocytes # (Auto) 0.8 L 1.0-4.8 K/uL Monocytes # (Auto) 0.3 0.1-1.0 K/uL Eosinophils # (Auto) 0.08 0.00-0.70 K/uL Basophils # (Auto) 0.02 0.00-0.20 K/uL Absolute Immature Granulocyte (auto 0.05 0-1 K/uL Nucleated Red Blood Cells 0.0 0.0-0.19 % Reticulocyte Count (auto) 2.23078 0.42-2.23 % Immature Reticulocyte Fraction 13.20 H 0.18-0.48 % Sodium Level 138 136-145 mmol/L Potassium Level 3.7 3.5-5.1 mmol/L Chloride Level 101 101-111 mmol/L Carbon Dioxide Level 27 21-32 mmol/L Blood Urea Nitrogen 7 7-18 mg/dL Creatinine 0.6 0.5-1.0 mg/dL Glomerular Filtration Rate Calc 95 >90 mL/min Random Glucose 91 70-105 mg/dL Total Calcium 8.9 8.5-10.1 mg/dL Iron Level 34 L 50-170 mcg/dL Total Iron Binding Capacity 196 L 250-450 mcg/dL Percent Iron Saturation 17.3 L 22-44 % Ferritin 498 H 15-150 ng/mL Vitamin B12 Level 630 193-986 pg/mL Current Medications Medications (Trade) Dose Ordered Sig/Becca Route PRN Reason Start Time Stop Time Status Last Admin Dose Admin Acetaminophen (TYLenol 325MG TAB) 650 mg Q6H PRN PO FEVER/MILD PAIN LEVEL 1-3 06/09/24 06:00 07/09/24 05:59 Acetaminophen (TYLenol 650MG SUPPOSITORY) 650 mg Q6H PRN RC FEVER / MILD PAIN 1-3 IF NPO 06/09/24 06:00 07/09/24 05:59 Amlodipine Besylate (NorvASC 2.5MG TAB) 2.5 mg DAILY PO 06/09/24 09:00 06/09/24 23:43 DC 06/09/24 20:02 2.5 MG Amlodipine Besylate (NorvASC 2.5MG TAB) 2.5 mg HS PO 06/10/24 21:00 07/09/24 08:59 06/11/24 20:19 2.5 MG Carbidopa/Levodopa (Carbidopa-Levo Er 50-200 Tab) 1 each DAILY PO 06/11/24 09:00 07/11/24 08:59 06/12/24 08:53 1 EACH Carbidopa/Levodopa (Carbidopa-Levo Er 50-200 Tab) 1 each DAILY05 PO 06/11/24 05:00 07/11/24 04:59 06/12/24 05:02 1 EACH Carbidopa/Levodopa (Carbidopa-Levo Er 50-200 Tab) 1 each DAILY14 PO 06/11/24 14:00 07/11/24 13:59 06/11/24 13:48 1 EACH Carbidopa/Levodopa (Carbidopa-Levo Er 50-200 Tab) 1 each HS PO 06/10/24 21:00 07/10/24 20:59 06/11/24 20:19 1 EACH Carbidopa/Levodopa (Carbidopa-Levo Er 50-200 Tab) 1 each QID PO 06/09/24 17:00 06/10/24 13:07 DC 06/10/24 13:02 1 EACH Carbidopa/Levodopa (Sinemet 25-100 Tab) 1 each QID PO 06/09/24 09:00 06/09/24 14:29 DC 06/09/24 13:16 1 EACH Docusate Sodium (COLace 100MG CAP) 100 mg BID PRN PO c 06/09/24 06:00 07/09/24 05:59 Docusate Sodium (COLace 100MG CAP) 100 mg DAILY PO 06/09/24 09:00 06/10/24 13:07 DC 06/09/24 08:22 100 MG Docusate Sodium (COLace 100MG CAP) 100 mg DAILYDINNER PO 06/10/24 17:00 07/09/24 08:59 Folic Acid (FOLic ACID 1 MG TABLET) 1 mg DAILY PO 06/09/24 09:00 07/09/24 08:59 06/12/24 08:52 1 MG Gabapentin (NEURontin 100 mg CAP) 100 mg DAILY PO 06/11/24 09:00 07/11/24 08:59 06/12/24 08:52 100 MG Gabapentin (NEURontin 100 mg CAP) 100 mg DAILY05 PO 06/11/24 05:00 07/11/24 04:59 06/12/24 05:03 100 MG Gabapentin (NEURontin 100 mg CAP) 100 mg DAILY14 PO 06/11/24 14:00 07/11/24 13:59 Gabapentin (NEURontin 100 mg CAP) 100 mg TID PO 06/09/24 09:00 06/10/24 13:07 DC 06/10/24 13:02 100 MG Hydralazine HCl (APRESOLine 20MG INJ) 10 mg Q2H PRN IV SBP GREATER THAN 160 06/09/24 06:00 07/09/24 05:59 06/11/24 23:53 10 MG Lactulose (Constulose 20gm/ 30ml Udcup) 20 gm Q6H PRN PO CONSTIPATION 06/09/24 06:00 07/09/24 05:59 Levothyroxine Sodium (SYNTHroid 100MCG TAB) 100 mcg SYN PO 06/09/24 06:30 07/09/24 06:29 06/12/24 05:04 100 MCG Lisinopril (Prinivil 10mg) 10 mg DAILY PO 06/09/24 09:00 07/09/24 08:59 06/10/24 08:20 10 MG Magnesium Sulfate 50 ml @ 0 mls/hr PROTOCOL PRN IV MAGNESIUM PROTOCOL 06/10/24 09:00 07/10/24 08:59 Ondansetron HCl (zoFRAN 4MG INJ) 4 mg Q6H PRN IVP NAUSEA/VOMITING 06/09/24 06:00 07/09/24 05:59 Piperacillin Sod/ Tazobactam Sod (Zosyn 3.375gm+NS 50ml) 3.375 gm Q8H IVPB 06/09/24 05:00 06/19/24 04:59 06/12/24 05:02 3.375 GM Potassium Chloride 100 ml @ 100 mls/hr AD PRN IV POTASSIUM PROTOCOL 06/10/24 09:00 07/10/24 08:59 Potassium Chloride (K-Dur/Klor-Con 20meq) 20 meq AD PRN PO POTASSIUM PROTOCOL 06/10/24 09:00 07/10/24 08:59 Potassium Chloride (KCl 10% Elixir 20meq/15ml) 20 meq AD PRN PO POTASSIUM PROTOCOL 06/10/24 09:00 07/10/24 08:59 06/12/24 05:05 20 MEQ Sodium Chloride 1,000 ml @ 250 mls/hr Q4H IV 06/10/24 00:00 06/10/24 04:00 DC 06/09/24 23:59 250 MLS/HR Sodium Chloride (NS 50ml) 50 ml AD IV 06/09/24 05:00 06/09/24 05:01 DC Temazepam (restORIL 15 MG CAP) 15 mg HS PRN PO INSOMNIA/SLEEP 06/09/24 06:00 07/09/24 05:59 Vitamin B Complex (Vitamin B-12) 1,000 mcg DAILY PO 06/09/24 09:00 07/09/24 08:59 06/12/24 08:52 1,000 MCG Wound Care/ Dressing Products (Venelex Ointment) apply to buttocks TID TP 06/10/24 21:00 07/10/24 20:59 06/12/24 08:58 1 GM DIAGNOSTICS / RADIOLOGY: [place] [id number] [address] IMAGING REPORT Signed PATIENT: DIANA DUMONT MR#: [id number] : 12/17/1952 SEX: F AGE: 71 LOCATION: 3AH ORDER 010 STATUS: ADM IN REPORT#: [id number] SERVICE 0059 REASON: r/o bladder obstruction ORDERING PHYSICIAN: RO SERRA PROCEDURE: ABD PEL WO - CT ABDOMEN/PELVIS W/O CONTRAST CT ABDOMEN WITHOUT CONTRAST. CT PELVIS WITHOUT CONTRAST. INDICATION: Evaluate for bladder obstruction TECHNIQUE: Routine transaxial imaging using 5 mm slice thickness through the abdomen and pelvis without the administration of IV contrast. Thin slice reconstructions are also provided. Coronal and sagittal reformatted images acquired for interpretation. CT was performed with one or more of the following dose reduction techniques: Automated exposure control, adjustment of the mA and/or kV according to patient size, or use of iterative reconstruction technique. COMPARISON: None FINDINGS: ON NONCONTRAST IMAGING: ABDOMEN: Heart size is normal. Visible lung bases are clear. No abnormal renal calcifications, hydronephrosis, perinephric inflammation, or proximal hydroureter detected. Curvilinear calcification at the upper pole of the right kidney and larger linear calcification at the mid to upper portion of the left kidney appear to be of vascular in origin. The liver is normal in size and smooth in contour without biliary duct dilation. The spleen is normal in size and attenuation. The gallbladder appears normal. The pancreas appears normal without pancreatic duct dilation. The adrenal glands appear normal. No significant abdominal, retrocrural or retroperitoneal adenopathy noted. No evidence for intra-abdominal free air or organized fluid collection. Mild calcific plaque is noted along the abdominal aortic and iliac vessel alberto without aneurysmal dilation. PELVIS: Sal catheter occupies the urinary bladder. No evidence for free air or organized pelvic fluid collection. No significant pelvic adenopathy detected. Moderate rectal fecal impaction. Terminal ileum appears unremarkable. The appendix appears normal. Visible osseous structures are intact. IMPRESSION: Sal catheter within the normal-sized urinary bladder, without evidence for any acute intra-abdominal or pelvic process, including no evidence for cystitis. Additional minor findings and pertinent negatives as reported. DICTATED BY: JAMISON ZHANG MD DATE: 06/09/24803 ELECTRONICALLY SIGNED BY: JAMISON ZHANG MD DATE: 06/09/24808 ASSESSMENT: Acute complicated cystitis secondary to chronic Sal catheter, POA Chronic Sal catheter use Anemia Severe protein calorie malnutrition POA Electrolyte derangement (hyponatremia, hypochloremia) Parkinson's disease Pressure ulcer on right buttock POA Hypertension Hypercholesteremia HX: UTIs & ESBL in the urine PLAN: Continue to monitor the patient on Med surge floor. Acute complicated cystitis secondary to chronic Sal, POA Chronic Sal catheter use Urine culture is positive > [id number] CFU. Positive for ESBL and Proteus mirabilis, sensitive to Zosyn. ID consult appreciated and we will follow up with their recommendations. Recommends continuing Zosyn Continue Zosyn 3.[address] abdomen and pelvis revealed no evidence of cystitis Sal catheter change per nursing staff. Parkinson's disease Continue carbidopa levodopa as prescribed Hypertension Continue home medication Amlodipine. Hydralazine IV p.r.n. if systolic blood pressures above 160 Pressure is 96/44, we will recheck it and if it continues to remain low we will give her IV bolus. Anemia Iron panel shows iron 34, TIBC 196, saturation 17.3 %, ferritin 498 I will Order IV iron sucrose Electrolyte derangement (hyponatremia, hypochloremia, hypokalemia) Are within normal range Hypokalemia protocol Pressure ulcer on right buttock POA Wound management consult appreciated and recommends Venelex ointment t.i.d., offloading measures, balanced protein calorie intake. Severe protein calorie malnutrition POA BMI is 16.2. On examination, she has a muscle mass loss on cheek bones and atro phy, sunken appearance Nutrition has been consulted and we will wait for their recommendations Resume patient's home medications: Amlodipine, carbidopa levodopa, vitamin B12, docusate, folic acid, gabapentin, levothyroxine, lisinopril. Oxygen as needed to keep SpO2 equal to greater than 92%. P.r.n. medications for: Pain management, fever, hypertension, nausea, vomiting, constipation. Glucometer checks a.c. and HS with insulin regular sliding scale per protocol. GI and DVT prophylaxis. ATTESTATION BY PHYSICIAN I have seen and examined the patient. I reviewed the documentation, medical decision making, and treatment plan as noted by the resident provider above. I agree with the findings and plan of care. Khai Pettit MD, KRUPALI P MD Jun 12, 2024 11:31
[2024-06-12] MEDS ORDERED: COMPOUND IV MISC 1 EACH IVSOLN MISC PRN (13:00)
--- NOTE | 2024-06-12 15:37 | NUR ---
Nutritional Note: Pt denied N/V, PCP visit, NKFA. Pt reported Vit B Complex qd, last BM /, 25% PO in 2 mo. due to Parkinsons episodes, UBW 120 lbs 3 mo ago, wt lost unknown d/t not able to stand or walk to weigh herself. Pt reported chewing problems d/t Parkinson episodes. Observed poor dentition. Pt agreeable to Prostat Jello TID and Ensure HP in vanilla to supplement diet and increase protein. NFPE conducted to find severe fat loss in tricep, orbital, and thoracic region and severe muscle loss in interosseous, holiness, clavicle, and gastrocnemius region. Pt has PCM and at risk for refeeding syndrome due to 25% PO in 2 mo, 30% wt loss in 3 mo, NFPE severe muscle and fat loss, and poor dentition. BMP and Vit B12 WNL. Recommendations -Continue Heart healthy + mechanical ground -Follow [employer] recs - Order Prostat Jello 30ml TID all trays - Order Ensure HP vanilla BID AM and Dinner tray -Monitor PO intake -Encourage PO intake as able -If poor PO intake continues consider appetite stimulant -Monitor wts -Reweigh as able -Recommend Pt to follow up with PCP -Monitor care goals RD to follow + available for consult per protocol Dietetic Student, Sofía Morataya Addendum: 06/12/24 at [address] Amended: Links added.
--- NOTE | 2024-06-12 16:30 | NUR ---
BEDSIDE SWALLOW EVAL COMPLETED. NO S/S OF ASPIRATION. RECOMMEND MINCED AND MOIST SOLIDS (MECHANICAL SOFT/GROUND SOLIDS), THIN LIQUIDS AND PILLS WHOLE 1 PILL PER SWALLOW OR CRUSHED TOLERATED. EXPRESSED HIS CONCERNED ABOUT PATIENT NOT EATING ANYTHING WHEN TREMORS ARE SEVERE. COMMERCIAL RETOUCHER DISCUSSED IMPORTANCE OF ORAL INTAKE TO MEET NUTRITION/HYDRATION. IF PATIENT HAS MORE DAYS OF NOT EATING, PATIENT MAY WANT TO DISCUSS GETTING A PEG TUBE PLACEMENT TO MEET NUTRITION/HYDRATION. PATIENT HOWEVER REFUSED THAT OPTION. COMPENSATORY STRATEGIES: 1. SIT UPRIGHT DURING ORAL INTAKE 2. SMALL BITES/SIPS 3. SLOW ORAL INTAKE 4. ASSISTANCE DURING FEEDING COMMERCIAL RETOUCHER REVIEWED RESULTS AND RECOMMENDATIONS WITH PATIENT, FAMILY AND NURSE KAITLYN. COMMERCIAL RETOUCHER EDUCATED PATIENT ON RISKS AND CONSEQUENCES OF ASPIRATION. SPEECH THERAPY NOT WARRANTED AT THIS TIME. ALL QUESTIONS ANSWERED. Addendum: 06/12/[address]O SADLER Amended: Links added.
--- NOTE | 2024-06-12 17:27 | PN ---
INFECTIOUS DISEASE PROGRESS NOTE Date of Service: Jun 12, 2024 SUBJECTIVE: This is a 73-year-old female patient who was seen at bedside in room 303. Patient is awake, alert and able to answer questions appropriately. Patient is afebrile, temperature is 97.5 and a WBC of 7.9. Patient continues on Zosyn for UTI with ESBL, E coli and Proteus mirabilis. Sal catheter draining clear yellow urine. No issues reported by nursing. PHYSICAL EXAM EYES: Anicteric. Pupils equal and reactive. HENT: No oral thrush seen, moist Oral mucosa. NECK: Supple, no JVD or thyromegaly. LUNGS: Good air entry. No rales, no rhonchi. CARDIOVASCULAR: S1, S2 regular. No murmur heard. ABDOMEN: Soft, non tender, bowel sounds present, no organomegaly. CENTRAL NERVOUS SYSTEM: Awake, alert, oriented x 3. SKIN: No rashes, no swelling. LYMPHATICS: No peripheral lymphadenopathy MUSCULOSKELETAL: No joint swelling, erythema or tenderness. Involuntary hand tremors. EXTREMITIES: No cyanosis or clubbing. BACK: No deformity, no pressure ulcer. GENITOURINARY: No dysuria or hematuria. Vital Sign (Last 12 Hours) 06/12/24 06/12/24 06/12/24 06/12/24 07:54 12:00 12:24 16:00 Temp 97.3 97.5 97.5 Pulse 63 64 59 Resp 19 19 18 B/P (MAP) 102/60 161/67 97/41 Pulse Ox 96 93 96 95 O2 Delivery Room Air Room Air Room Air* Room Air O2 Flow Rate 0 FiO2 21 06/12/24 16:30 O2 Delivery N/A Room Air Intake & Output (last 24hrs) 06/11/24 06/11/24 06/12/24 15:00 23:00 07:00 Intake Total 300 ml Output Total 500 ml Balance -200 ml LABS: Laboratory: Test 06/12/24 04:25 Range/Units White Blood Count 7.9 4.8-10.8 K/uL Red Blood Count 3.14 L 4.00-5.50 MIL/uL Hemoglobin 9.4 L 12.0-16.0 g/dL Hematocrit 29.5 L 36-48 % Mean Corpuscular Volume 93.9 79-99 fL Mean Corpuscular Hemoglobin 29.9 27.0-33.0 pg Mean Corpuscular Hemoglobin Concent 31.9 L 32.0-36.0 g/dL Red Cell Distribution Width 15.2 11.0-15.5 % Platelet Count 320 130-400 K/uL Mean Platelet Volume 9.2 7.5-10.5 fL Immature Granulocyte % (Auto) 0.6 0-1 % Neutrophils (%) (Auto) 83.8 H 40.0-77.0 % Lymphocytes (%) (Auto) 10.1 L 21.0-51.0 % Monocytes (%) (Auto) 4.2 3.0-13.0 % Eosinophils (%) (Auto) 1.0 0.0-8.0 % Basophils (%) (Auto) 0.3 0.0-5.0 % Neutrophils # (Auto) 6.6 1.8-7.7 K/uL Lymphocytes # (Auto) 0.8 L 1.0-4.8 K/uL Monocytes # (Auto) 0.3 0.1-1.0 K/uL Eosinophils # (Auto) 0.08 0.00-0.70 K/uL Basophils # (Auto) 0.02 0.00-0.20 K/uL Absolute Immature Granulocyte (auto 0.05 0-1 K/uL Nucleated Red Blood Cells 0.0 0.0-0.19 % Reticulocyte Count (auto) 2.08364 0.42-2.23 % Immature Reticulocyte Fraction 13.20 H 0.18-0.48 % Sodium Level 138 136-145 mmol/L Potassium Level 3.7 3.5-5.1 mmol/L Chloride Level 101 101-111 mmol/L Carbon Dioxide Level 27 21-32 mmol/L Blood Urea Nitrogen 7 7-18 mg/dL Creatinine 0.6 0.5-1.0 mg/dL Glomerular Filtration Rate Calc 95 >90 mL/min Random Glucose 91 70-105 mg/dL Total Calcium 8.9 8.5-10.1 mg/dL Iron Level 34 L 50-170 mcg/dL Total Iron Binding Capacity 196 L 250-450 mcg/dL Percent Iron Saturation 17.3 L 22-44 % Ferritin 498 H 15-150 ng/mL Vitamin B12 Level 630 193-986 pg/mL DIAGNOSTICS / RADIOLOGY: PATIENT: DIANA VUONG ACCT: [id number] LOC: 3AH U: [id number] AGE/SX: 73/F ROOM: 303 RE06/09/[address]: AMBAR GIMENEZ MD : 1950 BED: 1 DIS: STATUS: ADM James TLOC: SPEC: [id number] LUIS FELIPE: 06/09/24 STATUS: COMP REQ: [id number] RECD: 06/09/[address]: RO SERRA SOURCE: [facility] ENTR: 06/09/24-[address] [facility] [address]: SUNNY MARR MD SPDESC: CLEAN CAT SELF,REFERRAL ORDERED: AERO ID & SENS Procedure Result Simon Date-Time AEROBIC ID & SENSITIVITIES Final 06/11/24-0650 MRL EXTENDED SPECTRUM BETA-LACTAMASE ORGANISM IDENTIFIED. CRITICAL RESULT WAS CALLED BY STEFFEN CORTES ON 06/11/24 AT 0648. CRITICAL VALUES WERE READ BACK AND ACKNOWLEDGED BY LISA ZAVALETA ([facility] [place] COLONY DESCRIPTION: DAY 1: COLONY COUNT: >100,000 CFU/ML GRAM NEGATIVE RODS IDENTIFICATION AND SENSITIVITY TO FOLLOW COMMENTS(R): ESBL ESCHERICHIA COLI PROTEUS MIRABILIS E COLI PMIRABILIS M.I.C. RX M.I.C. RX --------- ---- --------- ---- AMPICILLIN >16 R* >16 R AZTREONAM >16 ESBL <=4 S CEFAZOLIN >16 R* <=2 S CEFTAZIDIME 8 ESBL CEFTAZIDIME/AVIBACTAM <=8 S <=8 S CEFTRIAXONE >2 ESBL GENTAMICIN >8 R <=2 S LEVOFLOXACIN <=0.5 S <=0.5 S NITROFURANTOIN <=32 S TOBRAMYCIN 8 R MEROPENEM <=1 S <=1 S PIPERACILLIN/TAZOBACTAM <=8 S <=8 S TRIMETHOPRIM/SUFLAMETHOXAZOLE > R <=2/38 S ESCHERICHIA COLI: NEGATIVE/URINE COMBO 62 Lab Alert - ESBL (Extended-Spectrum Beta-Lactamase editor producer) ASSESSMENT: Urinary tract infection with E coli and Proteus mirabilis. Infection with multidrug resistant organism. Urinary retention with Sal catheter in place. History of Parkinson disease. PLAN: Continue Zosyn IV every 8 hours. Continue nutritional support. We will monitor electrolytes. This case was reviewed and discussed with my supervising physician and the above assessment and plan was formulated and agreed upon. ATTESTATION BY PHYSICIAN I have seen and examined the patient. I reviewed the documentation, medical decision making, and treatment plan as noted by the mid-level provider above. I agree with the findings and plan of care. KAROLYN SIDHU MD, MIRTA L [facility] Jun 12, 2024 17:27
[2024-06-12] MEDS: IRON sUCROse COMPLEX 300 MG in 0.9% NACL 250ML 250 ML IV ONE (21:28)
[2024-06-12] MEDS: TEMAZepam 15 MG CAPSULE PO PRN (22:49)
[2024-06-13 03:50] VITALS: BP 105/55; PULSE 60; RESP 16; TEMP 98
[2024-06-13 04:51] LABS: BASOPHILS # (AUTO) 0.02 K/uL (0.00-0.20); BASOPHILS % (AUTO) 0.4 % (0.0-5.0); EOSINOPHILS # (AUTO) 0.22 K/uL (0.00-0.70); EOSINOPHILS % (AUTO) 4.5 % (0.0-8.0); HEMATOCRIT 29.7 % (36-48); IMMATURE GRANULOCYTE ABSOLUTE 0.03 K/uL (0-1); LYMPHOCYTES # (AUTO) 0.9 K/uL (1.0-4.8); LYMPHOCYTES % (AUTO) 18.4 % (21.0-51.0); MEAN CORPUSCULAR HEMOGLOBIN 29.9 pg (27.0-33.0); MEAN CORPUSCULAR VOLUME 93.4 fL (79-99); MONOCYTES # (AUTO) 0.3 K/uL (0.1-1.0); MONOCYTES % (AUTO) 5.9 % (3.0-13.0); NEUTROPHILS # (AUTO) 3.4 K/uL (1.8-7.7); NEUTROPHILS % (AUTO) 70.2 % (40.0-77.0); PLATELET COUNT (AUTO) 329 K/uL (130-400); RED BLOOD CELL COUNT(AUTO) 3.18 MIL/uL (4.00-5.50); RED CELL DISTRIBUTION WIDTH 15.2 % (11.0-15.5); WHITE BLOOD COUNT (AUTO) 4.9 K/uL (4.8-10.8)
[2024-06-13 05:08] LABS: CREATININE 0.6 mg/dL (0.5-1.0); POTASSIUM 4.2 mmol/L (3.5-5.1)
[2024-06-13 07:41] VITALS: BP 104/49; PULSE 57; RESP 18; TEMP 97.6
[2024-06-13 08:00] VITALS: O2SAT 95
[2024-06-13 12:00] VITALS: BP 129/71; PULSE 83; RESP 18; TEMP 97.6
--- NOTE | 2024-06-13 12:16 | PN ---
INFECTIOUS DISEASE PROGRESS NOTE Date of Service: Jun 13, 2024 SUBJECTIVE: This is a 73-year-old female patient who was seen at bedside in room 303. Patient is awake, alert and resting comfortably in bed. Patient has remained afebrile, current temperature is 97.5. From Infectious Disease standpoint patient can be discharged to home on Bactrim and Macrobid for 10 days when ready to discharge. Prescription was written. PHYSICAL EXAM EYES: Anicteric. Pupils equal and reactive. HENT: No oral thrush seen, moist Oral mucosa. NECK: Supple, no JVD or thyromegaly. LUNGS: Good air entry. No rales, no rhonchi. CARDIOVASCULAR: S1, S2 regular. No murmur heard. ABDOMEN: Soft, non tender, bowel sounds present, no organomegaly. CENTRAL NERVOUS SYSTEM: Awake, alert, oriented x 3. SKIN: No rashes, no swelling. LYMPHATICS: No peripheral lymphadenopathy MUSCULOSKELETAL: No joint swelling, erythema or tenderness. Involuntary hand tremors. EXTREMITIES: No cyanosis or clubbing. BACK: No deformity, no pressure ulcer. GENITOURINARY: No dysuria or hematuria. Sal catheter. Vital Sign (Last 12 Hours) 06/13/24 06/13/24 06/13/24 03:50 07:41 12:00 Temp 98.1 97.5 97.5 Pulse 60 57 83 Resp 16 18 18 B/P (MAP) 105/55 104/49 129/71 Pulse Ox 96 94 97 O2 Delivery Room Air Room Air Room Air Intake & Output (last 24hrs) 06/12/24 06/12/24 06/13/24 15:00 23:00 07:00 Intake Total 300.0 ml 410.0 ml Output Total 1300 ml 1200 ml Balance -1000.0 ml -790.0 ml LABS: Laboratory: Test 06/13/24 04:20 06/12/24 04:25 Range/Units White Blood Count 4.9 # 4.8-10.8 K/uL Red Blood Count 3.18 L 4.00-5.50 MIL/uL Hemoglobin 9.5 L 12.0-16.0 g/dL Hematocrit 29.7 L 36-48 % Mean Corpuscular Volume 93.4 79-99 fL Mean Corpuscular Hemoglobin 29.9 27.0-33.0 pg Mean Corpuscular Hemoglobin Concent 32.0 32.0-36.0 g/dL Red Cell Distribution Width 15.2 11.0-15.5 % Platelet Count 329 130-400 K/uL Mean Platelet Volume 9.3 7.5-10.5 fL Immature Granulocyte % (Auto) 0.6 0-1 % Neutrophils (%) (Auto) 70.2 40.0-77.0 % Lymphocytes (%) (Auto) 18.4 L 21.0-51.0 % Monocytes (%) (Auto) 5.9 3.0-13.0 % Eosinophils (%) (Auto) 4.5 0.0-8.0 % Basophils (%) (Auto) 0.4 0.0-5.0 % Neutrophils # (Auto) 3.4 1.8-7.7 K/uL Lymphocytes # (Auto) 0.9 L 1.0-4.8 K/uL Monocytes # (Auto) 0.3 0.1-1.0 K/uL Eosinophils # (Auto) 0.22 0.00-0.70 K/uL Basophils # (Auto) 0.02 0.00-0.20 K/uL Absolute Immature Granulocyte (auto 0.03 0-1 K/uL Nucleated Red Blood Cells 0.0 0.0-0.19 % Sodium Level 142 136-145 mmol/L Potassium Level 4.2 3.5-5.1 mmol/L Chloride Level 104 101-111 mmol/L Carbon Dioxide Level 29 21-32 mmol/L Blood Urea Nitrogen 7 7-18 mg/dL Creatinine 0.6 0.5-1.0 mg/dL Glomerular Filtration Rate Calc 95 >90 mL/min Random Glucose 85 70-105 mg/dL Total Calcium 9.1 8.5-10.1 mg/dL Reticulocyte Count (auto) 2.75515 0.42-2.23 % Immature Reticulocyte Fraction 13.20 H 0.18-0.48 % Iron Level 34 L 50-170 mcg/dL Total Iron Binding Capacity 196 L 250-450 mcg/dL Percent Iron Saturation 17.3 L 22-44 % Ferritin 498 H 15-150 ng/mL Vitamin B12 Level 630 193-986 pg/mL ASSESSMENT: Urinary tract infection with E coli and Proteus mirabilis. Infection with multidrug resistant organism. Urinary retention with Sal catheter in place. History of Parkinson disease. PLAN: Continue Zosyn IV every 8 hours. From Infectious Disease standpoint patient can be discharged to home on Bactrim and Macrobid for 10 days when ready to discharge. Prescription was written. This case was reviewed and discussed with my supervising physician and the above assessment and plan was formulated and agreed upon. ATTESTATION BY PHYSICIAN I have seen and examined the patient. I reviewed the documentation, medical decision making, and treatment plan as noted by the mid-level provider above. I agree with the findings and plan of care. KAROLYN SIDHU MD, MIRTA L [facility] Jun 13, 2024 12:16
--- NOTE | 2024-06-13 12:37 | DS ---
Discharge Summary Hospital Course Summary: Ms. Dumont is a 73-year-old female with a history of UTIs, chronic Sal, hx of ESBL in the urine, Parkinson's, hypercholesteremia, and hypertension who presented to [facility] ED on 06/09/24 for evaluation of suprapubic abdominal pain, Sal problem, hematuria, and dark urine onset the last four days. The patient reported discomfort to the urinary meatus, noted large amount of hematuria, then the urine in the bag looked brownish in color. Today the Sal catheter had decreased output, was leaking around, and for which the family believed it was clogged. The patient reported subjective fevers for the last couple of days. The patient does not ambulate at baseline due to her ex tensive history of Parkinson's. The patient lives with her elderly who takes care of her. ED changed the patient's Sal to a three-way Sal catheter. Patient was admitted with a diagnosis of UTI. On Presentation in ED Patient's oral mucosa was dry, has bags under her eyes, It appeared to be slightly sunken in. Patient has resting tremors to her bilateral upper extremities, R>L. Labs reviewed: Hemoglobin 9.6, platelet 376. Coags unremarkable. Na 132, chloride 97, K 3.9. BUN and creatinine are unremarkable. CT abdomen and pelvis: Sal catheter within normal size urinary bladder, without evidence of any acute intra-abdominal or pelvic process, including no evidence for cystitis. On, 06/10/24 Urine analysis is consistent with UTI. Urine cultures positive for >[id number] CFU and positive for ESBL E coli and Proteus mirabilis which is sensitive to Zosyn. Continued on Zosyn Q 8 IVPB. Infectious disease consult was obtained who recommended to continue her on Zosyn IV. Management Dr. Morataya consult was obtained for pressure ulcer, recommended Venelex ointment t.i.d. Her iron panel showed iron 34, TIBC 196, saturation 17.3%, ferritin 498. Received IV iron sucrose 300 for 2 days. Today on 06/13/24, her vitals are stable, is asymptomatic, her hemoglobin is 9.5, WBC 4.9, CMP is within normal range. She is clinically stable to go home, cleared for discharge from infectious disease standpoint, who wrote a script with Macrobid 100 mg p.o. b.i.d. and Bactrim DS p.o. b.i.d. for 10 days. Patient to follow up with PCP within 3-5 days upon discharge. Can Closing Machine Operator(s): Infectious disease : Dr. Albright Wound Management : Dr. Morataya Procedure(s): [facility] [address] [place] [address] IMAGING REPORT Signed PATIENT: DIANA DUMONT MR#: [id number] : 1950 SEX: F AGE: 73 LOCATION: 3AH ORDER 0101 STATUS: ADM IN REPORT#: [id number] SERVICE 0059 REASON: r/o bladder obstruction ORDERING PHYSICIAN: RO SERRA PROCEDURE: ABD PEL WO - CT ABDOMEN/PELVIS W/O CONTRAST CT ABDOMEN WITHOUT CONTRAST. CT PELVIS WITHOUT CONTRAST. INDICATION: Evaluate for bladder obstruction TECHNIQUE: Routine transaxial imaging using 5 mm slice thickness through the abdomen and pelvis without the administration of IV contrast. Thin slice reconstructions are also provided. Coronal and sagittal reformatted images acquired for interpretation. CT was performed with one or more of the following dose reduction techniques: Automated exposure control, adjustment of the mA and/or kV according to patient size, or use of iterative reconstruction technique. COMPARISON: None FINDINGS: ON NONCONTRAST IMAGING: ABDOMEN: Heart size is normal. Visible lung bases are clear. No abnormal renal calcifications, hydronephrosis, perinephric inflammation, or proximal hydroureter detected. Curvilinear calcification at the upper pole of the right kidney and larger linear calcification at the mid to upper portion of the left kidney appear to be of vascular in origin. The liver is normal in size and smooth in contour without biliary duct dilation. The spleen is normal in size and attenuation. The gallbladder appears normal. The pancreas appears normal without pancreatic duct dilation. The adrenal glands appear normal. No significant abdominal, retrocrural or retroperitoneal adenopathy noted. No evidence for intra-abdominal free air or organized fluid collection. Mild calcific plaque is noted along the abdominal aortic and iliac vessel alberto without aneurysmal dilation. PELVIS: Sal catheter occupies the urinary bladder. No evidence for free air or organized pelvic fluid collection. No significant pelvic adenopathy detected. Moderate rectal fecal impaction. Terminal ileum appears unremarkable. The appendix appears normal. Visible osseous structures are intact. IMPRESSION: Sal catheter within the normal-sized urinary bladder, without evidence for any acute intra-abdominal or pelvic process, including no evidence for cystitis. Additional minor findings and pertinent negatives as reported. DICTATED BY: JAMISON ZHANG MD DATE: 06/09/24 0804 ELECTRONICALLY SIGNED BY: JAMISON ZHANG MD DATE: 06/12/24 1358 RUN DATE: 06/11/24 [facility] PAGE 1 RUN TIME: [id number] [address] Department of Laboratories CLIA # [id number] Consulting Services Associate: Ximena Arevalo DO Specimen Report PATIENT: DIANA DUMONT ACCT: [id number] LOC: [facility] U: [id number] AGE/SX: 73/F ROOM: [facility] RE06/09/[address]: AMBAR GIMENEZ MD : 1950 BED: 1 DIS: STATUS: ADM James TLOC: SPEC: [id number] LUIS FELIPE: 06/09/24 STATUS: COMP REQ: [id number] RECD: 06/09/[address]: RO SERRA SOURCE: [facility] [place] 06/09/24-[address]: SUNNY MARR MD [facility]: CLEAN CAT SELF,REFERRAL ORDERED: AERO ID & SENS Procedure Result Simon Date-Time AEROBIC ID & SENSITIVITIES Final 06/11/24-0650 MRL EXTENDED SPECTRUM BETA-LACTAMASE ORGANISM IDENTIFIED. CRITICAL RESULT WAS CALLED BY STEFFEN CORTES ON 06/11/24 AT 0648. CRITICAL VALUES WERE READ BACK AND ACKNOWLEDGED BY LISA ZAVALETA ([facility]) COLONY DESCRIPTION: DAY 1: COLONY COUNT: >100,000 CFU/ML GRAM NEGATIVE RODS IDENTIFICATION AND SENSITIVITY TO FOLLOW COMMENTS(R): ESBL ESCHERICHIA COLI PROTEUS MIRABILIS E COLI PMIRABILIS M.I.C. RX M.I.C. RX --------- ---- --------- ---- AMPICILLIN >16 R* >16 R AZTREONAM >16 ESBL <=4 S CEFAZOLIN >16 R* <=2 S CEFTAZIDIME 8 ESBL CEFTAZIDIME/AVIBACTAM <=8 S <=8 S CEFTRIAXONE >2 ESBL GENTAMICIN >8 R <=2 S LEVOFLOXACIN <=0.5 S <=0.5 S NITROFURANTOIN <=32 S TOBRAMYCIN 8 R MEROPENEM <=1 S <=1 S PIPERACILLIN/TAZOBACTAM <=8 S <=8 S TRIMETHOPRIM/SUFLAMETHOXAZOLE > R <=2/38 S ESCHERICHIA COLI: NEGATIVE/URINE COMBO 62 Lab Alert - ESBL (Extended-Spectrum Beta-Lactamase manufacturing tech) @ [facility] Test Performed at: [facility] [address], [place], [place] Medical Banquet Manager: Ramirez Bueno D.O. RUN DATE: 06/11/24 [facility] PAGE 1 RUN TIME: 3240 [id number] [address], [place] [address] Department of Laboratories CLIA # [id number] Consulting Services Associate: Ximena Arevalo DO Specimen Report ---- -------- SPEC: [id number] PATIENT: DIANA DUMONT [id number] (Continued) CONTINUED ON NEXT PAGE Assessment/Plan: ASSESSMENT: Acute complicated cystitis secondary to chronic Sal catheter, POA Chronic Sal catheter use Anemia Severe protein calorie malnutrition POA Electrolyte derangement (hyponatremia, hypochloremia) Parkinson's disease Pressure ulcer on right buttock POA Hypertension Hypercholesteremia HX: UTIs & ESBL in the urine Discharge Instructions: ADMISSION DATE : 06/09/24 DISCHARGE DATE : 06/13/24 DISPOSITION : Home CONDITION : Stable Can Closing Machine Operator(s) : Wound management : Dr. Morataya Infectious disease : Dr. Albright FOLLOW UP APPOINTMENTS : Patient to follow-up with the PCP within 3-5 days upon discharge. PROCEDURES : None IMAGING (s) : Report attached to summary : CT abdomen and pelvis MICROBIOLOGY : Report attached to summary. Urine culture ACTIVITY : ab junior HOME MEDICATIONS : Continue NEW MEDICATIONS : Macrobid 100 mg p.o. for 10 days Bactrim ds 1 tablet p.o. b.i.d. for 10 days TEACHING : We reinforced the importance of medication compliance and with follow up appointments. Advised patient to follow-up with the PCP within 3-5 days upon discharge Emergency instructions : The patient was instructed to present to the nearest Emergency Department or call 911 should their symptoms return or worsen. Home Medications: Reported Medications Docusate Sodium (Docusate Sodium) 100 Mg Capsule, 1 CAP PO DAILY for constipation for 30 Days, #30 CAP 0 Refills 06/09/24 Cyanocobalamin (Vitamin B-12) (Vitamin B-12) 1,000 Mcg Capsule, 1 CAP PO DAILY for 30 Days, #30 CAP 0 Refills 06/09/24 Folic Acid (Folvite) 1 Mg Tab, 1 TAB PO DAILY for 30 Days, #30 TAB 0 Refills 06/09/24 Lisinopril (Lisinopril) 10 Mg Tablet, 1 TAB PO DAILY for 30 Days, #30 TAB 0 Refills 06/09/24 Carbidopa/Levodopa (Carbidopa-Levodopa 25-100 Tab) 25 Mg-100 Mg Tablet, 2 TAB PO QID for 30 Days, #90 TAB 0 Refills 06/09/24 Gabapentin (Gabapentin) 100 Mg Capsule, 1 CAP PO TID for 30 Days, #90 CAP 0 Refills 06/09/24 Levothyroxine Sodium (Levothyroxine Sodium) 100 Mcg Tablet, 1 TAB PO DAILY for 30 Days, #30 TAB 0 Refills 06/09/24 Amlodipine Besylate (Amlodipine Besylate) 2.5 Mg Tablet, 1 TAB PO HS for 30 Days, #30 TAB 0 Refills 06/09/24 Continued Medications: Amlodipine Besylate (Amlodipine Besylate) 2.5 Mg Tablet 1 TAB PO HS for 30 Days, #30 TAB 0 Refills Carbidopa/Levodopa (Carbidopa-Levodopa 25-100 Tab) 25 Mg-100 Mg Tablet 2 TAB PO QID for 30 Days, #90 TAB 0 Refills Cyanocobalamin (Vitamin B-12) (Vitamin B-12) 1,000 Mcg Capsule 1 CAP PO DAILY for 30 Days, #30 CAP 0 Refills Docusate Sodium (Docusate Sodium) 100 Mg Capsule 1 CAP PO DAILY for constipation for 30 Days, #30 CAP 0 Refills Folic Acid (Folvite) 1 Mg Tab 1 TAB PO DAILY for 30 Days, #30 TAB 0 Refills Gabapentin (Gabapentin) 100 Mg Capsule 1 CAP PO TID for 30 Days, #90 CAP 0 Refills Levothyroxine Sodium (Levothyroxine Sodium) 100 Mcg Tablet 1 TAB PO DAILY for 30 Days, #30 TAB 0 Refills Lisinopril (Lisinopril) 10 Mg Tablet 1 TAB PO DAILY for 30 Days, #30 TAB 0 Refills Time spent arranging discharge: 1-30 minutes ATTESTATION BY PHYSICIAN I have seen and examined the patient. I reviewed the documentation, medical decision making, and treatment plan as noted by the resident provider above. I agree with the findings and plan of care. Khai Pettit MD, KRUPALI P MD Jun 13, 2024 12:37
--- NOTE | 2024-06-13 13:50 | NUR ---
note attempt to notify family of dc, no answer
[2024-06-13] MEDS: IRON sUCROse COMPLEX 300 MG in 0.9% NACL 250ML 250 ML IV ONE (13:59)
--- NOTE | 2024-06-13 14:29 | NUR ---
discharge 3rd attempt to notify family of patient being discharged, no answer.
--- NOTE | 2024-06-13 14:37 | NUR ---
dc note spoke with Samra Burnette and informed her that patient was being discharged today, stated she would be here after 1730 to slat pickler patient.
--- NOTE | 2024-06-13 14:55 | NUR ---
[facility] [place] Follow-up: Patient re-assessed by wound healing team. See wound assessment. Assessment and recommendations provided to primary nurse. Education provided. Addendum: 06/14/24 at 0941 by PJ SANTORO RN RN/ Amended: Links added.
[2024-06-13 15:34] VITALS: BP 105/55; PULSE 70; RESP 19; TEMP 98
== END 2024-06-13 17:50 | disposition home or self-care (01) | DRG 689 ==
LOC: EDH 00:16 → OBSVTOIN 00:17 → EDBD 00:17 → EDHIP 00:17 → 3AH 07:40
PROVIDERS: ADMIT Internal Medicine; ATTEND Internal Medicine
DX: N30.01 Acute cystitis with hematuria (principal); E43 Unspecified severe protein-calorie malnutrition; E46 Unspecified protein-calorie malnutrition; E87.1 Hypo-osmolality and hyponatremia; Z16.24 Resistance to multiple antibiotics; Z68.1 Body mass index [BMI] 19.9 or less, adult; Z16.12 Extended spectrum beta lactamase (ESBL) resistance; G20.A1 Parkinson's disease without dyskinesia, without mention of fluctuations; L89.319 Pressure ulcer of right buttock, unspecified stage; B96.20 Unspecified Escherichia coli [E. coli] as the cause of diseases classified elsewhere; B96.4 Proteus (mirabilis) (morganii) as the cause of diseases classified elsewhere; D64.9 Anemia, unspecified; E78.00 Pure hypercholesterolemia, unspecified; E87.8 Other disorders of electrolyte and fluid balance, not elsewhere classified; I10 Essential (primary) hypertension; K59.00 Constipation, unspecified; Z86.19 Personal history of other infectious and parasitic diseases; Z87.440 Personal history of urinary (tract) infections; Z88.1 Allergy status to other antibiotic agents; Z88.0 Allergy status to penicillin; Z88.8 Allergy status to other drugs, medicaments and biological substances; L89.322 Pressure ulcer of left buttock, stage 2
CPT/HCPCS: 36415; 74176; 80048; 81001; 82607; 82728; 83735; 84100; 85025; 85027; 85610; 85730; 87086; 87186; 92610; 99285; G0378; J0360; J1756; J2270; J2543; J7040; J7050